=== PATIENT | female | born 1940 | race Caucasian/White ===

== ENCOUNTER → 2016-09-30 | Outpatient (CLI) | payer MEDICARE, BC ==
--- NOTE | 2016-09-30 10:51 | MM ---
Reason for exam: screening (asymptomatic). Last mammogram was performed 2 years and 4 months ago. History: Patient is postmenopausal. Physical Findings: A clinical breast exam by your physician is recommended on an annual basis and results should be correlated with mammographic findings. MG 3D Screening Mammo W/Cad Bilateral CC and MLO view(s) were taken. Prior study comparison: May 26, 2014, bilateral MG screening mammo w CAD. May 25, 2013, bilateral digital screening mammo w/CAD. April 28, 2012, bilateral digital screening mammo w/CAD. There are scattered fibroglandular densities. Finding: There are typically benign vascular calcifications in both breasts. There is no discrete abnormality. ASSESSMENT: Benign, BI-RAD 2 RECOMMENDATION: Routine screening mammogram of both breasts in 1 year.
== END | disposition home or self-care (01) ==
LOC: RADMAMWWP 08:08
PROVIDERS: ATTEND Family Medicine
DX: Z12.31 Encounter for screening mammogram for malignant neoplasm of breast (principal)
CPT/HCPCS: 77063; G0202

== ENCOUNTER 2016-11-09 17:45 | Observation (INO) | payer MEDICARE, BC ==
[2016-11-09] MEDS ORDERED: NITROGLYCERIN OINT 1 INCH/GM PACKET TOPICAL STA (18:28)
[2016-11-09] MEDS ORDERED: ASPIRIN 81 MG CHEW PO STA (18:28)
--- NOTE | 2016-11-09 18:28 | ED ---
General Adult HPI - General Chief complaint: Chest Pain Stated complaint: Chest pain Time Seen by Provider: 11/09/16 17:50 Source: patient, RN notes reviewed Mode of arrival: wheelchair Limitations: no limitations - History of Present Illness Initial comments: This is a 76-year-old female who presents to the emergency department complaining of chest pain intermittent. Patient states his been intermittent all month-long typically lasting 10 minutes however today she states his been much more severe and much longer. Patient states is no shortness of breath associated there is no diaphoresis. There is no nauseated. There is no vomiting or diarrhea. Patient states the chest pain does not seem to be worse with exertion. She denies any abdominal pain. Patient denies any headache patient denies numbness weakness. Patient denies any lightheadedness dizziness or near syncopal episode. Patient states she has not been sick recently. Patient denies any recent fever chills or cough. Patient denies any recent injury or trauma. - Related Data Home Medications Medication Instructions Recorded Confirmed B Infantis/B Ani/B Ryan/B Bifid 1 tab PO DAILY 01/13/14 11/09/16 [Probiotic 4X Caplet] Vit A,C & E/Lutein/Minerals 1 tab PO DAILY 01/13/14 11/09/16 [Ocuvite with Lutein Tablet] LORazepam [Ativan] 1 mg PO AC-LUNCH 11/09/16 11/09/16 LORazepam [Ativan] 2 mg PO HS 11/09/16 11/09/16 Metoprolol Tartrate [Lopressor] 25 mg PO DAILY 11/09/16 11/09/16 Ranitidine HCl 150 mg PO BID 11/09/16 11/09/16 Allergies Allergy/AdvReac Type Severity Reaction Status Date / Time adhesive Allergy Rash/Hives Verified 11/09/16 18:31 chlorhexidine gluconate Allergy Itching Verified 11/09/16 18:31 [From Hibiclens] ciprofloxacin [From Cipro] Allergy Rash/Hives Verified 11/09/16 18:31 ciprofloxacin HCl Allergy Rash/Hives Verified 11/09/16 18:31 [From Cipro] fentanyl [From Duragesic] Allergy Itching Verified 11/09/16 18:31 fluocinonide Allergy Rash/Hives Verified 11/09/16 18:31 isopropyl alcohol Allergy Itching Verified 11/09/16 18:31 [From Hibiclens] nitrofurantoin Allergy Unknown Verified 11/09/16 18:31 [From Macrobid] nitrofurantoin Allergy Unknown Verified 11/09/16 18:31 macrocrystalline [From Macrobid] Penicillins Allergy headache Verified 11/09/16 18:31 povidone-iodine Allergy Rash/Hives Verified 11/09/16 18:31 [From Betadine] soap [From Betadine] Allergy Rash/Hives Verified 11/09/16 18:31 streptomycin [Streptomycin] Allergy Unknown Verified 11/09/16 18:31 Sulfa (Sulfonamide Allergy Rash/Hives Verified 11/09/16 18:31 Antibiotics) aspirin AdvReac Nausea & Verified 11/09/16 18:31 Vomiting methylprednisolone AdvReac Nausea & Verified 11/09/16 18:31 [From Medrol] Vomiting NSAIDS (Non-Steroidal AdvReac Nausea & Verified 11/09/16 18:31 Anti-Inflamma Vomiting Review of Systems ROS Statement: Those systems with pertinent positive or pertinent negative responses have been documented in the HPI. ROS Other: All systems not noted in ROS Statement are negative. Past Medical History Past Medical History: Osteoarthritis (OA) Additional Past Medical History / Comment(s): IBS, hx of arrythmia History of Any Multi-Drug Resistant Organisms: None Reported Past Surgical History: Appendectomy, Back Surgery, Cholecystectomy, Ear Surgery , Hysterectomy, Orthopedic Surgery, Pacemaker Additional Past Surgical History / Comment(s): rotator cuff surg., laser eye surg. Past Anesthesia/Blood Transfusion Reactions: Motion Sickness, Postoperative Nausea & Vomiting (PONV) Type of Cardiac Device: Permanent Pacemaker Device Placement Date:: unknown Past Psychological History: Anxiety Smoking Status: Never smoker Past Alcohol Use History: Occasional Past Drug Use History: None Reported - Past Family History Father Family Medical History: Cancer Additional Family Medical History / Comment(s): lung General Exam - General Exam Comments Initial Comments: GENERAL: Patient is well-developed and well-nourished. Patient is nontoxic and well- hydrated and is in no acute distress. ENT: Neck is soft and supple. No significant lymphadenopathy is noted. Oropharynx is clear. Moist mucous membranes. Neck has full range of motion without eliciting any pain. EYES: The sclera were anicteric and conjunctiva were pink and moist. Extraocular movements were intact and pupils were equal round and reactive to light. Eyelids were unremarkable. PULMONARY: Unlabored respirations. Good breath sounds bilaterally. No audible rales rhonchi or wheezing was noted. CARDIOVASCULAR: There is a regular rate and rhythm without any murmurs gallops or rubs. Femoral pulses are equal bilaterally ABDOMEN: Soft and nontender with normal bowel sounds. No palpable organomegaly was noted. There is no palpable pulsatile mass. SKIN: Skin is clear with no lesions or rashes and otherwise unremarkable. NEUROLOGIC: Patient is alert and oriented x3. Cranial nerves II through XII are grossly intact. Motor and sensory are also intact. Normal speech, volume and content. Symmetrical smile. Cerebellar exam grossly intact. MUSCULOSKELETAL: Normal extremities with adequate strength and full range of motion. No lower extremity swelling or edema. No calf tenderness. LYMPHATICS: No significant lymphadenopathy is noted PSYCHIATRIC: Normal psychiatric evaluation. Normal interpersonal interactions appears functionally intact in deals appropriately with others. No signs of depression. No signs of anxiety. No delusions. No hallucinations. Limitations: no limitations Course Vital Signs 11/09/16 11/09/16 11/09/16 17:47 18:01 19:25 Temperature 97.8 F Pulse Rate 71 59 L 54 L Respiratory 20 18 16 Rate Blood Pressure 102/57 107/56 125/58 O2 Sat by Pulse 98 97 98 Oximetry Medical Decision Making - Medical Decision Making EKG shows sinus bradycardia 59 bpm PA interval 140 QRS is 80 QT interval 412 QTC is 407 per patient's EKG shows no ST segment elevation or depression or T- wave abdomen is noted. Chest x-ray shows no acute abnormality. I spoke with [facility] they agreed to accept the patient admitted the patient I wrote admitting orders and consult cardiology. - Lab Data Result diagrams: 11/09/16 18:43 11/09/16 18:43 Lab Results 11/09/16 11/09/16 11/09/16 Range/Units 18:43 18:43 18:43 WBC 6.4 (3.8-10.6) k/uL RBC 4.22 (3.80-5.40) m/uL Hgb 13.1 (11.4-16.0) gm/dL Hct 37.6 (34.0-46.0) % MCV 89.2 (80.0-100.0) fL MCH 31.2 (25.0-35.0) pg MCHC 35.0 (31.0-37.0) g/dL RDW 13.5 (11.5-15.5) % Plt Count 187 (150-450) k/uL Neutrophils % 65 % Lymphocytes % 23 % Monocytes % 5 % Eosinophils % 4 % Basophils % 1 % Neutrophils # 4.2 (1.3-7.7) k/uL Lymphocytes # 1.5 (1.0-4.8) k/uL Monocytes # 0.3 (0-1.0) k/uL Eosinophils # 0.2 (0-0.7) k/uL Basophils # 0.0 (0-0.2) k/uL PT (9.0-12.0) sec INR (<1.1) APTT (22.0-30.0) sec Sodium 140 (137-145) mmol/L Potassium 4.3 (3.5-5.1) mmol/L Chloride 105 (98-107) mmol/L Carbon Dioxide 28 (22-30) mmol/L Anion Gap 7 mmol/L BUN 17 (7-17) mg/dL Creatinine 0.70 (0.52-1.04) mg/dL Est GFR (MDRD) Af Amer >60 (>60 ml/min/1.73 sqM) Est GFR (MDRD) Non-Af >60 (>60 ml/min/1.73 sqM) Glucose 91 (74-99) mg/dL Calcium 8.9 (8.4-10.2) mg/dL Magnesium 1.8 (1.6-2.3) mg/dL Total Bilirubin 0.4 (0.2-1.3) mg/dL AST 22 (14-36) U/L ALT 27 (9-52) U/L Alkaline Phosphatase 78 (38-126) U/L Total Creatine Kinase 32 (30-135) U/L CK-MB (CK-2) 0.8 (0.0-2.4) ng/mL CK-MB (CK-2) Rel Index 2.5 Troponin I <0.012 (0.000-0.034) ng/mL Total Protein 6.4 (6.3-8.2) g/dL Albumin 3.7 (3.5-5.0) g/dL 03/26/17 Range/Units 18:43 WBC (3.8-10.6) k/uL RBC (3.80-5.40) m/uL Hgb (11.4-16.0) gm/dL Hct (34.0-46.0) % MCV (80.0-100.0) fL MCH (25.0-35.0) pg MCHC (31.0-37.0) g/dL RDW (11.5-15.5) % Plt Count (150-450) k/uL Neutrophils % % Lymphocytes % % Monocytes % % Eosinophils % % Basophils % % Neutrophils # (1.3-7.7) k/uL Lymphocytes # (1.0-4.8) k/uL Monocytes # (0-1.0) k/uL Eosinophils # (0-0.7) k/uL Basophils # (0-0.2) k/uL PT 10.9 (9.0-12.0) sec INR 1.1 (<1.1) APTT 24.3 (22.0-30.0) sec Sodium (137-145) mmol/L Potassium (3.5-5.1) mmol/L Chloride (98-107) mmol/L Carbon Dioxide (22-30) mmol/L Anion Gap mmol/L BUN (7-17) mg/dL Creatinine (0.52-1.04) mg/dL Est GFR (MDRD) Af Amer (>60 ml/min/1.73 sqM) Est GFR (MDRD) Non-Af (>60 ml/min/1.73 sqM) Glucose (74-99) mg/dL Calcium (8.4-10.2) mg/dL Magnesium (1.6-2.3) mg/dL Total Bilirubin (0.2-1.3) mg/dL AST (14-36) U/L ALT (9-52) U/L Alkaline Phosphatase (38-126) U/L Total Creatine Kinase (30-135) U/L CK-MB (CK-2) (0.0-2.4) ng/mL CK-MB (CK-2) Rel Index Troponin I (0.000-0.034) ng/mL Total Protein (6.3-8.2) g/dL Albumin (3.5-5.0) g/dL Disposition Clinical Impression: Unstable angina pectoris Disposition: ADMITTED IP TO THIS HOSP Referrals: Emma Mcgregor DO [Primary Care Provider] - 1-2 days Time of Disposition: 19:46
[2016-11-09 18:54] LABS: Basophils % (A) 1 %; CH 31.2; CHCM 35.2; Eosinophils # (A) 0.2 k/uL (0-0.7); Eosinophils % (A) 4 %; HCT 37.6 % (34.0-46.0); HDW 2.75; HGB 13.1 gm/dL (11.4-16.0); Luc # (Auto) 0.16; Luc % (Auto) 3; Lymphocytes # (A) 1.5 k/uL (1.0-4.8); Lymphocytes % (A) 23 %; MCH 31.2 pg (25.0-35.0); MCV 89.2 fL (80.0-100.0); Mean Platelet Volume 7.5; Monocytes # (A) 0.3 k/uL (0-1.0); Monocytes % (A) 5 %; Neutrophils # (A) 4.2 k/uL (1.3-7.7); Neutrophils % (A) 65 %; RBC 4.22 m/uL (3.80-5.40); RDW 13.5 % (11.5-15.5); WBC 6.4 k/uL (3.8-10.6); WBC (Perox) 6.72
[2016-11-09 18:58] LABS: INR 1.1 (<1.1); Prothrombin Time 10.9 sec (9.0-12.0)
--- NOTE | 2016-11-09 18:58 | XR ---
EXAMINATION TYPE: XR chest 2V DATE OF EXAM: 11/09/2016 6:45 PM COMPARISON: 01/19/2014 HISTORY: Chest pain TECHNIQUE: Frontal and lateral views of the chest are obtained. FINDINGS: There is no heart failure nor confluent pneumonic infiltrate. Heart size is normal. There are no hilar masses. There is left axillary pacemaker with the lead tips in the right ventricle. Thor acic aorta is atheromatous. There is no pleural effusion. IMPRESSION: No active cardiopulmonary disease. No change.
[2016-11-09 18:59] LABS: ALT 27 U/L (9-52); AST 22 U/L (14-36); Alkaline Phosphatase 78 U/L (38-126); Anion Gap 7 mmol/L; Blood Urea Nitrogen 17 mg/dL (7-17); Calcium 8.9 mg/dL (8.4-10.2); Carbon Dioxide 28 mmol/L (22-30); Chloride 105 mmol/L (98-107); Glucose 91 mg/dL (74-99); Magnesium 1.8 mg/dL (1.6-2.3); Non-African American GFR(MDRD) >60 (>60 ml/min/1.73 sqM); Partial Thromboplastin Time 24.3 sec (22.0-30.0); Potassium 4.3 mmol/L (3.5-5.1); Sodium 140 mmol/L (137-145); Total Bilirubin 0.4 mg/dL (0.2-1.3); Total Protein 6.4 g/dL (6.3-8.2)
[2016-11-09 19:20] LABS: Creatine Kinase 32 U/L (30-135)
[2016-11-09 19:33] LABS: Creatine Kinase MB 0.8 ng/mL (0.0-2.4); Troponin I <0.012 ng/mL (0.000-0.034)
[2016-11-09 19:38] VITALS: RESP 16
[2016-11-09] MEDS ORDERED: NITROGLYCERIN SL TABS 0.4 MG TAB SUBLINGUAL PRN (19:47)
[2016-11-09 21:59] VITALS: BMI 29.7
[2016-11-09] MEDS ORDERED: LORazepam 1 MG TAB PO PRN (22:36)
[2016-11-09] MEDS: ACETAMINOPHEN TAB 325 MG TAB PO PRN (23:56)
[2016-11-10 00:39] LABS: Creatine Kinase 25 U/L (30-135)
[2016-11-10 00:48] LABS: Creatine Kinase MB 0.5 ng/mL (0.0-2.4); Troponin I <0.012 ng/mL (0.000-0.034)
[2016-11-10] MEDS: DICYCLOMINE 10 MG CAP PO SCH ×2 (03:06→14:35)
[2016-11-10] MEDS: ACETAMINOPHEN TAB 325 MG TAB PO PRN (06:08)
[2016-11-10 08:07] LABS: Cholesterol 177 mg/dL (<200); HDL Cholesterol 57 mg/dL (40-60); Triglycerides 60 mg/dL (<150)
[2016-11-10 08:11] LABS: Creatine Kinase 25 U/L (30-135)
[2016-11-10 08:23] LABS: Creatine Kinase MB 0.6 ng/mL (0.0-2.4); Troponin I <0.012 ng/mL (0.000-0.034)
[2016-11-10] MEDS ORDERED: FAMOTIDINE 20 MG TAB PO SCH (09:00)
[2016-11-10] MEDS ORDERED: METOPROLOL TARTRATE 25 MG TAB PO SCH (09:00)
[2016-11-10] MEDS ORDERED: ASPIRIN 325 MG TAB PO SCH (09:00)
[2016-11-10] MEDS ORDERED: VIT A,C & E-LUTEIN-MINERALS 1 EACH TAB PO SCH (09:00)
[2016-11-10] MEDS ORDERED: DIPHENOX-ATROP 2.5-0.025 MG 1 EACH TAB PO PRN (09:47)
[2016-11-10] MEDS ORDERED: MORPHINE SULFATE 2 MG/ML SYRINGE IVP STA (11:10)
[2016-11-10] MEDS ORDERED: AMINOPHYLLINE 500 MG/20 ML VIAL IV PRN (11:12)
[2016-11-10] MEDS ORDERED: REGADENOSON 0.4 MG/5 ML SYRINGE IV ONE (11:15)
--- NOTE | 2016-11-10 14:56 | NM ---
EXAMINATION TYPE: NM stress Lexiscan cardiolite DATE OF EXAM: 11/10/2016 2:18 PM COMPARISON: NONE HISTORY: Chest pain TECHNIQUE: After the intravenous administration of 11.0 mCi Tc 99m Sestamibi - Cardiolite resting SP ECT images acquired 45 minutes post injection. The patient received 0.4mg Lexiscan, 27.5 mCi Tc 99m Sestamibi - Stress images obtained [address] injection FINDINGS: The rest images show diffusely increased activity compared to the stress images. Gated analysis shows normal wall motion with an estimated left ventricular ejection fraction of 53 %. IMPRESSION: INFORMATION DENSITY PROBLEM VERSUS GLOBAL ISCHEMIA.
--- NOTE | 2016-11-10 15:23 | ECHOS ---
DATE OF SERVICE: AGE: 76Y SEX: F HT: 59" WT: 147 lbs. Protocol Zeb: Others: Stage: Dur. of Exercise: *Heart Rate Blood Pressure *Rest: 59 Rest: 131/78 * *Max. Achieved: 86 Maximum BP: 210/62 85% PMHR: 122 100% PMHR: 144 *METS: INDICATIONS: Chest pain. MEDICATIONS: See list. Baseline rhythm is a sinus mechanism, rate of 59, normal axis and intervals. Minor nonspecific ST-T wave changes. Baseline blood pressure 131/78 mmHg. Patient received an injection of Lexiscan. Electrocardiograph monitoring revealed no evidence of diagnostic ischemic ST deviation. Cardiolite was injected per protocol. CONCLUSION: 1. Nondiagnostic electrocardiograph stress test. 2. Nuclear images will be reported separately.
--- NOTE | 2016-11-10 16:06 | CONS ---
DATE OF CONSULTATION: 76-year-old female Admitted by Dr. Richard. Consultation requested by Dr. Richard. Patient follows with my associate Dr. Kathy Meadows. Patient has a pacemaker, which is reaching end of life. Pacemaker was checked in August and comes back in December for generator replacement. Patient admitted to the hospital with recurrent intermittent chest pain with radiation to the back, lasting for 10 minutes on and off. Minimal exertion without any diaphoresis or shortness of breath. No nausea. Patient is reasonably active. Lives alone by herself. Patient has 3 children but does not have much contact with her children. Patient known to have hypertension and sick sinus syndrome status post pacemaker implantation. Current medications include: 1. Lorazapam. 2. Ativan on p.r.n. basis. 3. Metoprolol tartrate 25 mg p.o. daily. 4. Ranitidine 50 mg p.o. b.i.d. Patient allergic to a whole lot of medications which include: ADHESIVE TAPE, HIBACLENS, CIPRO, FENTANYL, ISOPROPYL ALCOHOL, ( ), NITROFURANTOIN, PENICILLIN, IODINE, BETADINE SOAK, STREPTOMYCIN, SULFA, ASPIRIN, METHYL PREDNISONE AND NONSTEROIDAL ANTI-INFLAMMATORY AGENTS. Patient is ( ) nonsmoker. Review of systems are essentially unremarkable, complaining of headache which she never has, but has a headache today. Patient had multiple surgeries in the past, which include appendectomy, back surgery, cholecystectomy, ( ) surgery, hysterectomy, orthopedic surgery and pacemaker. Physical examination revealed a 76-year-old female appeared to be in moderate distress because of the headache with stable vital signs with a pulse rate of 68 beats per minute and regular, blood pressure 116/62, respirations 16. Head normocephalic. HEENT unremarkable. Neck is supple. No thyroid enlargement. No bruit noted. Good carotid upstroke bilaterally. Chest is symmetrical. CARDIAC EXAMINATION: S1 and S2. Lungs are clinically clear to auscultation and percussion. ABDOMEN: Soft, no organomegaly. Active bowel sounds. EXTREMITIES: Decreased pedal pulses. No pedal edema. [employer] JUDGE examination: Grossly within normal limits. ASSESSMENT: 1. Recurrent chest pain suggestive of atypical angina without any enzyme leaks. 2. Cephalgia. 3. Hypertension and sick sinus syndrome, status post pacemaker implantation. Battery is reaching end of life, to rescreened in December. RECOMMENDATIONS: Will proceed with a Lexiscan Cardiolite study to assess severity of coronary artery disease and need for interventions. If the study is normal, patient may be able to go home.
[2016-11-10 16:34] VITALS: TEMP 98.6
[2016-11-10 16:36] VITALS: BP 118/85; PULSE 55
[2016-11-11] MEDS ORDERED: FAMOTIDINE 20 MG TAB PO SCH (09:00)
--- NOTE | 2016-11-11 10:38 | HP ---
DATE OF ADMISSION: CHIEF COMPLAINT: Chest pain. HISTORY OF ILLNESS: Ms. Martin is a 76-year-old female with known history of anxiety and history of sick sinus syndrome and pacemaker placement about 10 years back. Came to the hospital with complaints of ( ) and the left-sided chest pain, started yesterday and has been present all day, intermittent, lasting about 10 minutes. Denied any short of breath. No nausea or vomiting. No diaphoresis, no headache or dizziness or lightheadedness. Patient went to the hospital for further evaluation. Patient, otherwise, denied any recent illnesses. No sick contacts at home. REVIEW OF SYSTEMS: CONSTITUTIONAL: No fever. No chills. RESPIRATORY: No cough or sputum production. CARDIOVASCULAR: No chest pain or short of breath. ABDOMEN: No nausea, vomiting or abdominal pain. GENITOURINARY: Negative. ENDOCRINE: Negative. PSYCHIATRY: Negative. SKIN: Negative. MUSCULOSKELETAL: Negative. All other 14-point review of systems negative except as above. Past medical history includes history of sick sinus syndrome, status post pacemaker replacement, anxiety and hypertension, IBS and history of ( ) osteoarthritis. PAST SURGICAL HISTORY: Appendectomy, back surgery, cholecystectomy, ear surgery, hysterectomy, orthopedic surgery and permanent pacemaker replacement, rotator cuff surgery, pacemaker, laser eye surgery. SOCIAL HISTORY: Patient never a smoker, occasional alcohol use. No IVDU. FAMILY HISTORY: Father has lung cancer. Home medications include: 1. Probiotics. 2. Ocuvite with lutein tablet. 3. Lorazepam. 4. Metoprolol. 5. Loratadine. 6. ( ). 7. Chlorhexidine. 8. Ciprofloxacin. 9. Fentanyl. 10. ( ). 11. Isopropyl alcohol. 12. Nitrofurantoin. 13. Insulin. 14. ( ). 15. Streptomycin. 16. Sulfa. 17. Aspirin. 18. Medrol prednisone. 19. NSAID. PHYSICAL EXAMINATION: A 76-year-old female lying in bed, comfortably, awake, alert, oriented x3. Appears to be in no apparent distress. VITALS: Blood pressure is 102/57, pulse is 71, respirations 20, temperature afebrile, pulse ox 98% on 2 L nasal cannula. HEENT: Atraumatic, normocephalic. Neck is supple. No JVD. CVS EXAM: S1, S2, muffled, no murmurs, no gallop, no rub. LUNGS: Bilateral air entry is present. No wheezing. No crackles. Nonlabored breathing. Abdomen is soft, nontender. Bowel sounds are present. MEAT HANGER: Awake, alert, oriented x3. No focal deficits. EXTREMITIES: No edema, pulses palpable bilaterally. PSYCHIATRIC: Cooperative. Patient does have left anterior chest pain with pacemaker in place. No tenderness at the site, no redness at the site. LABORATORY DATA: WBC 6.4, hemoglobin 13.1, platelets are 187, INR 1.1. Sodium 140, potassium 4.3, chloride 105, bicarb is 28, BUN 17, creatinine 0.7, magnesium 1.8. Troponin x3 negative. The LDL is 108. EKG, sinus bradycardia. Chest x-ray, no acute cardiopulmonary process. Stress test showed information density problem versus global ischemia and nondiagnostic echocardiographic stress test. ( ) separately. IMPRESSION: 1. Atypical chest pain, rule out acute coronary artery syndrome. 2. Sick sinus syndrome with a pacemaker placement. 3. Hypertension. 4. Anxiety. RECOMMENDATION: Patient will be continued on ( ). Cardiology ( ) stress test. Will continue to follow closely. Further recommendations based on the clinical course. Patient is currently chest-pain free.
--- NOTE | 2016-11-11 20:37 | DS ---
DATE OF ADMISSION: 11/09/2016 DATE OF DISCHARGE: 11/10/2016 DISCHARGE DIAGNOSES: 1. Atypical chest pain, ruled out acute coronary syndrome, nondiagnostic echocardiographic stress test. 2. Hypertension. 3. Anxiety. 4. History of sick sinus syndrome and pacemaker placement. HOSPITAL COURSE: Ms. Martin is a 76 -year-old female with left sided chest pain, intermittent lasting about 10 minutes, not associated with nausea, vomiting, diaphoresis, no headache or dizziness, lightheadedness. The patient was monitored in the hospital with serial EKGs and troponins negative. The patient underwent ( ) stress test showed nondiagnostic echocardiograph stress test and ( ) Lexiscan stress test stress. The patient serial EKGs and troponins negative. The patient is chest pain free now. Patient advised to follow with cardiology team for pacemaker battery replacement as well. The patient wants to go home and will be discharged in stable condition. Discharge physical examination: 76 -year-old female, lying in the bed comfortably, awake, alert and oriented x3 appears to be in no apparent distress. VITAL SIGNS: Blood pressure is 111/48. Pulse is 85. Respiratory rate 16. Temperature afebrile. Pulse ox 98% on room air. Laboratory data reviewed. Discharge physical examination done. Discharge medications include: 1. Probiotic 1 tablet p.o. daily. 2. Ocuvite 1 tablet p.o. daily. 3. Bentyl 10 milligrams p.o. b.i.d. 4. Lomotil 1 tablet p.o. q.i.d. p.r.n. for diarrhea. 5. Ativan 1 mg a.c. lunch. 6. Ativan 2 mg p.o. at bedtime. 7. Metoprolol tartrate 25 mg p.o. daily. 8. Ranitidine 450 mg p.o. b.i.d. Patient will be discharged home and with self-care. Activity as tolerated. Follow with Dr. Mcgregor in one or two days. Follow with Dr. Kathy Meadows in one week.
== END 2016-11-10 19:30 | disposition home or self-care (01) ==
LOC: EC 17:45 → 3OBS 19:46
PROVIDERS: ADMIT Hospitalist; ATTEND Hospitalist
DX: R07.89 Other chest pain (principal); R51 Headache; I10 Essential (primary) hypertension; Z95.0 Presence of cardiac pacemaker; Z79.899 Other long term (current) drug therapy; M19.90 Unspecified osteoarthritis, unspecified site; K58.9 Irritable bowel syndrome, unspecified; F41.9 Anxiety disorder, unspecified; Z80.1 Family history of malignant neoplasm of trachea, bronchus and lung; Z88.6 Allergy status to analgesic agent; Z88.1 Allergy status to other antibiotic agents; Z88.5 Allergy status to narcotic agent; Z88.0 Allergy status to penicillin; Z88.2 Allergy status to sulfonamides; Z88.8 Allergy status to other drugs, medicaments and biological substances; Z91.048 Other nonmedicinal substance allergy status
CPT/HCPCS: 99285; 36415; 93005; 93017; 80061; 80053; 82550 ×2; 82553 ×2; 83735; 84484 ×2; 85025; 85610; 85730; 71020; 78452; G0378 ×2; A9500; J2270; J2785

== ENCOUNTER 2016-11-30 08:14 | Emergency (ER) | payer MEDICARE, BC ==
[2016-11-30] MEDS ORDERED: MORPHINE SULFATE 2 MG/ML SYRINGE IVP STA (08:30)
[2016-11-30] MEDS ORDERED: ONDANSETRON 4 MG/2 ML VIAL IVP STA (08:30)
[2016-11-30] MEDS ORDERED: RX INFO: IV CONTRAST WAS GIVEN 1 EACH MISC MISCELLANE PRN (08:30)
[2016-11-30] MEDS ORDERED: SODIUM CHLORIDE 0.9% 1,000 ML IV STA (08:30)
--- NOTE | 2016-11-30 08:33 | ED ---
Abdominal Pain HPI - General Source: patient, RN notes reviewed Mode of arrival: wheelchair Limitations: no limitations <Gilmar Hughes - Last Filed: 11/30/16 10:35> <Basil Michelle - Last Filed: 11/30/16 10:41> - General Chief Complaint: Abdominal Pain Stated Complaint: LEFT SIDE ABDOMINAL PAIN Time Seen by Provider: 11/30/16 08:26 - History of Present Illness Initial Comments: 76 she'll female presents emergency Department chief complaint of left upper quadrant abdominal pain. Patient states been having on and off pain over the last 2-3 days or states worse today. Patient states that she usually has some pain because she states she has severe IBS. Patient states she has to take Lomotil every day. Patient states that she has chronic diarrhea. Patient states she's had a prior appendectomy, cholecystectomy. Patient has no history of diverticulitis. Patient denies fever, chills, chest pain, shortness of breath. Patient denies any dysuria hematuria. Denies any flank pain. Patient states nothing seems to make the pain feel better or worse. She states it sharp in nature and 10/10 pain. (Gilmar Hughes) - Related Data Home Medications Medication Instructions Recorded Confirmed B Infantis/B Ani/B Ryan/B Bifid 1 tab PO DAILY 01/13/14 11/30/16 [Probiotic 4X Caplet] Vit A,C & E/Lutein/Minerals 1 tab PO DAILY 01/13/14 11/30/16 [Ocuvite with Lutein Tablet] Dicyclomine [Bentyl] 10 mg PO BID 11/09/16 11/30/16 Diphenox-Atrop 2.5-0.025 mg 1 tab PO QID PRN 11/09/16 11/30/16 [Lomotil] LORazepam [Ativan] 1 mg PO AC-LUNCH 11/09/16 11/30/16 LORazepam [Ativan] 2 mg PO HS 11/09/16 11/30/16 Metoprolol Tartrate [Lopressor] 25 mg PO DAILY 11/09/16 11/30/16 Previous Rx's Medication Instructions Recorded Omeprazole [PriLOSEC] 20 mg PO AC-BRKFST #14 cap 11/30/16 Allergies Allergy/AdvReac Type Severity Reaction Status Date / Time adhesive Allergy Rash/Hives Verified 11/30/16 09:25 chlorhexidine gluconate Allergy Itching Verified 11/30/16 09:25 [From Hibiclens] ciprofloxacin [From Cipro] Allergy Rash/Hives Verified 11/30/16 09:25 ciprofloxacin HCl Allergy Rash/Hives Verified 11/30/16 09:25 [From Cipro] fentanyl [From Duragesic] Allergy Itching Verified 11/30/16 09:25 fluocinonide Allergy Rash/Hives Verified 11/30/16 09:25 isopropyl alcohol Allergy Itching Verified 11/30/16 09:25 [From Hibiclens] nitrofurantoin Allergy Unknown Verified 11/30/16 09:25 [From Macrobid] nitrofurantoin Allergy Unknown Verified 11/30/16 09:25 macrocrystalline [From Macrobid] Penicillins Allergy headache Verified 11/30/16 09:25 povidone-iodine Allergy Rash/Hives Verified 11/30/16 09:25 [From Betadine] soap [From Betadine] Allergy Rash/Hives Verified 11/30/16 09:25 streptomycin [Streptomycin] Allergy Unknown Verified 11/30/16 09:25 Sulfa (Sulfonamide Allergy Rash/Hives Verified 11/30/16 09:25 Antibiotics) aspirin AdvReac Nausea & Verified 11/30/16 09:25 Vomiting methylprednisolone AdvReac Nausea & Verified 11/30/16 09:25 [From Medrol] Vomiting NSAIDS (Non-Steroidal AdvReac Nausea & Verified 11/30/16 09:25 Anti-Inflamma Vomiting Review of Systems ROS Other: All systems not noted in ROS Statement are negative. <Gilmar Hughes - Last Filed: 11/30/16 10:35> ROS Other: All systems not noted in ROS Statement are negative. <Basil Michelle - Last Filed: 11/30/16 10:41> ROS Statement: Those systems with pertinent positive or pertinent negative responses have been documented in the HPI. Past Medical History Past Medical History: Osteoarthritis (OA) Additional Past Medical History / Comment(s): IBS, hx of arrythmia History of Any Multi-Drug Resistant Organisms: None Reported Past Surgical History: Appendectomy, Back Surgery, Cholecystectomy, Ear Surgery , Hysterectomy, Orthopedic Surgery, Pacemaker Additional Past Surgical History / Comment(s): rotator cuff surg., laser eye surg. Past Anesthesia/Blood Transfusion Reactions: Motion Sickness, Postoperative Nausea & Vomiting (PONV) Type of Cardiac Device: Permanent Pacemaker Device Placement Date:: unknown Past Psychological History: Anxiety Smoking Status: Never smoker Past Alcohol Use History: Occasional Past Drug Use History: None Reported - Past Family History Father Family Medical History: Cancer Additional Family Medical History / Comment(s): lung <Gilmar Hughes - Last Filed: 11/30/16 10:35> General Exam Limitations: no limitations General appearance: alert, in no apparent distress Respiratory exam: Present: normal lung sounds bilaterally. Absent: respiratory distress, wheezes, rales, rhonchi, stridor Cardiovascular Exam: Present: regular rate, normal rhythm, normal heart sounds. Absent: systolic murmur, diastolic murmur, rubs, gallop, clicks GI/Abdominal exam: Present: soft, tenderness (Moderate left upper quadrant tenderness), normal bowel sounds. Absent: distended, guarding, rebound, rigid Back exam: Absent: CVA tenderness (R), CVA tenderness (L) Skin exam: Present: warm, dry, intact, normal color. Absent: rash <Gilmar Hughes - Last Filed: 11/30/16 10:35> Course <Gilmar Hughes - Last Filed: 11/30/16 10:35> <Basil Michelle - Last Filed: 11/30/16 10:41> Vital Signs 11/30/16 11/30/16 08:20 09:58 Temperature 97.6 F 97.6 F Pulse Rate 69 80 Respiratory 18 13 Rate Blood Pressure 129/60 118/56 O2 Sat by Pulse 97 93 L Oximetry - Reevaluation(s) Reevaluation #1: 11/30/16 10:40 I did personally do a [id number] examination the patient did discuss the findings with her. I also did review the patient's workup in the emergency. The workup is negative patient currently is asymptomatic abdomen soft nontender the presentation is consistent with irritable bowel syndrome. She has had this before and is very familiar with it. She is follow-up with her doctor and return when necessary (Basil Michelle) Medical Decision Making - Lab Data Result diagrams: 11/30/16 08:20 11/30/16 08:20 <Gilmar Hughes - Last Filed: 11/30/16 10:35> - Lab Data Result diagrams: 11/30/16 08:20 11/30/16 08:20 <Basil Michelle - Last Filed: 11/30/16 10:41> - Medical Decision Making 76-year-old female presented for left upper quadrant abdominal pain. Patient's lab work, CT within normal limits. Patient does have a history of IBS. Patient 's EKG shows no acute changes. Patient states over pain has resolved at this time. Patient will follow-up with her primary care physician, GI. Return parameters were discussed. (Gilmar Hughes) - Lab Data Lab Results 11/30/16 11/30/16 11/30/16 Range/Units 08:20 08:20 08:20 WBC 4.6 (3.8-10.6) k/uL RBC 4.25 (3.80-5.40) m/uL Hgb 13.2 (11.4-16.0) gm/dL Hct 38.0 (34.0-46.0) % MCV 89.5 (80.0-100.0) fL MCH 31.2 (25.0-35.0) pg MCHC 34.8 (31.0-37.0) g/dL RDW 13.8 (11.5-15.5) % Plt Count 192 (150-450) k/uL Neutrophils % 56 % Lymphocytes % 28 % Monocytes % 6 % Eosinophils % 7 % Basophils % 0 % Neutrophils # 2.6 (1.3-7.7) k/uL Lymphocytes # 1.3 (1.0-4.8) k/uL Monocytes # 0.3 (0-1.0) k/uL Eosinophils # 0.3 (0-0.7) k/uL Basophils # 0.0 (0-0.2) k/uL Sodium 142 (137-145) mmol/L Potassium 4.6 (3.5-5.1) mmol/L Chloride 106 (98-107) mmol/L Carbon Dioxide 26 (22-30) mmol/L Anion Gap 10 mmol/L BUN 14 (7-17) mg/dL Creatinine 0.62 (0.52-1.04) mg/dL Est GFR (MDRD) Af Amer >60 (>60 ml/min/1.73 sqM) Est GFR (MDRD) Non-Af >60 (>60 ml/min/1.73 sqM) Glucose 82 (74-99) mg/dL Calcium 8.9 (8.4-10.2) mg/dL Total Bilirubin 0.9 (0.2-1.3) mg/dL AST 35 (14-36) U/L ALT 31 (9-52) U/L Alkaline Phosphatase 79 (38-126) U/L Troponin I <0.012 (0.000-0.034) ng/mL Total Protein 6.9 (6.3-8.2) g/dL Albumin 3.8 (3.5-5.0) g/dL Amylase 52 (30-110) U/L Lipase 42 (23-300) U/L Urine Color Urine Appearance (Clear) Urine pH (5.0-8.0) Ur Specific [place] (1.001-1.035) Urine Protein (Negative) Urine Glucose (UA) (Negative) Urine Ketones (Negative) Urine Blood (Negative) Urine Nitrite (Negative) Urine Bilirubin (Negative) Urine Urobilinogen (<2.0) mg/dL Ur Leukocyte Esterase (Negative) 11/30/16 Range/Units 10:29 WBC (3.8-10.6) k/uL RBC (3.80-5.40) m/uL Hgb (11.4-16.0) gm/dL Hct (34.0-46.0) % MCV (80.0-100.0) fL MCH (25.0-35.0) pg MCHC (31.0-37.0) g/dL RDW (11.5-15.5) % Plt Count (150-450) k/uL Neutrophils % % Lymphocytes % % Monocytes % % Eosinophils % % Basophils % % Neutrophils # (1.3-7.7) k/uL Lymphocytes # (1.0-4.8) k/uL Monocytes # (0-1.0) k/uL Eosinophils # (0-0.7) k/uL Basophils # (0-0.2) k/uL Sodium (137-145) mmol/L Potassium (3.5-5.1) mmol/L Chloride (98-107) mmol/L Carbon Dioxide (22-30) mmol/L Anion Gap mmol/L BUN (7-17) mg/dL Creatinine (0.52-1.04) mg/dL Est GFR (MDRD) Af Amer (>60 ml/min/1.73 sqM) Est GFR (MDRD) Non-Af (>60 ml/min/1.73 sqM) Glucose (74-99) mg/dL Calcium (8.4-10.2) mg/dL Total Bilirubin (0.2-1.3) mg/dL AST (14-36) U/L ALT (9-52) U/L Alkaline Phosphatase (38-126) U/L Troponin I (0.000-0.034) ng/mL Total Protein (6.3-8.2) g/dL Albumin (3.5-5.0) g/dL Amylase (30-110) U/L Lipase (23-300) U/L Urine Color Light Yellow Urine Appearance Clear (Clear) Urine pH 5.5 (5.0-8.0) Ur Specific [place] 1.042 H (1.001-1.035) Urine Protein Negative (Negative) Urine Glucose (UA) Negative (Negative) Urine Ketones Negative (Negative) Urine Blood Negative (Negative) Urine Nitrite Negative (Negative) Urine Bilirubin Negative (Negative) Urine Urobilinogen <2.0 (<2.0) mg/dL Ur Leukocyte Esterase Negative (Negative) Disposition Time of Disposition: 10:37 <Gilmar Hughes - Last Filed: 11/30/16 10:35> <Basil Michelle - Last Filed: 11/30/16 10:41> Clinical Impression: Abdominal pain, IBS (irritable bowel syndrome), Gastritis Disposition: HOME SELF-CARE Condition: Stable Instructions: Abdominal Pain (ED) Additional Instructions: Please return to the Emergency Department if symptoms worsen or any other concerns. Prescriptions: Omeprazole [PriLOSEC] 20 mg PO AC-BRKFST #14 cap Referrals: Emma Mcgregor DO [Primary Care Provider] - 1-2 days
[2016-11-30 09:03] LABS: Basophils % (A) 0 %; CH 31.5; CHCM 35.3; Eosinophils # (A) 0.3 k/uL (0-0.7); Eosinophils % (A) 7 %; HDW 2.91; HGB 13.2 gm/dL (11.4-16.0); Luc # (Auto) 0.14; Luc % (Auto) 3; Lymphocytes # (A) 1.3 k/uL (1.0-4.8); Lymphocytes % (A) 28 %; MCH 31.2 pg (25.0-35.0); MCHC 34.8 g/dL (31.0-37.0); MCV 89.5 fL (80.0-100.0); Monocytes # (A) 0.3 k/uL (0-1.0); Monocytes % (A) 6 %; Neutrophils # (A) 2.6 k/uL (1.3-7.7); Neutrophils % (A) 56 %; RBC 4.25 m/uL (3.80-5.40); RDW 13.8 % (11.5-15.5); WBC 4.6 k/uL (3.8-10.6); WBC (Perox) 4.89
[2016-11-30 09:13] LABS: Amylase 52 U/L (30-110); Anion Gap 10 mmol/L; Calcium 8.9 mg/dL (8.4-10.2); Carbon Dioxide 26 mmol/L (22-30); Chloride 106 mmol/L (98-107); Glucose 82 mg/dL (74-99); Non-African American GFR(MDRD) >60 (>60 ml/min/1.73 sqM); Sodium 142 mmol/L (137-145); Total Bilirubin 0.9 mg/dL (0.2-1.3); Total Protein 6.9 g/dL (6.3-8.2)
[2016-11-30 09:15] LABS: ALT 31 U/L (9-52); AST 35 U/L (14-36); Alkaline Phosphatase 79 U/L (38-126); Blood Urea Nitrogen 14 mg/dL (7-17); Potassium 4.6 mmol/L (3.5-5.1)
[2016-11-30] MEDS: diphenhydrAMINE 50 MG/ML 1 ML VIAL IVP STA ×2 (09:47→09:50)
[2016-11-30] MEDS: FAMOTIDINE 20 MG/2 ML VIAL IV STA ×2 (09:47→09:50)
--- NOTE | 2016-11-30 10:17 | CT ---
EXAMINATION TYPE: CT abdomen pelvis w con DATE OF EXAM: 11/30/2016 9:58 AM COMPARISON: NONE HISTORY: Lt sided pain, LUQ pain CT DLP: 722.4 mGycm Automated exposure control for dose reduction was used. TECHNIQUE: Helical acquisition of images was performed from the lung bases through the pelvis. CONTRAST: Performed without Oral Contrast and with IV Contrast, patient injected with 100 mL of Omnipaque 300. FINDINGS: LUNG BASES: Minimal basilar atelectatic change. Pacemaker leads are present. Coronary artery calcific ation is present, suspect mitral annular calcification. LIVER/GB: Mild prominence of intrahepatic biliary ducts. Patient is post cholecystectomy. PANCREAS: No significant abnormality is seen. SPLEEN: No significant abnormality is seen. ADRENALS: No significant abnormality is seen. KIDNEYS: Parapelvic cysts are present. RETROPERITONEAL ADENOPATHY: None visualized REPRODUCTIVE ORGANS: Patient is post hysterectomy, ovarian tissue thought to be present. URINARY BLADDER: No significant abnormality is seen. PELVIC ADENOPATHY: None visualized. OSSEOUS STRUCTURES: Postop changes are noted to the lumbar sacral spine. There is a spinal curvature . Extensive degenerative disc changes are present. BOWEL: No significant abnormality is seen. OTHER: Aorta shows normal caliber. IMPRESSION: POSTOP CHANGES. Additional findings above.
[2016-11-30 10:39] LABS: Appearance,Urine Clear (Clear); Bilirubin,Urine Negative (Negative); Glucose,Urine (UA) Negative (Negative); Ketones,Urine Negative (Negative); Leukocyte Esterase,Urine Negative (Negative); Nitrite,Urine Negative (Negative); PH, Urine 5.5 (5.0-8.0); Protein,Urine Negative (Negative); Specific Gravity,Urine 1.042 (1.001-1.035); UA Billing (MACRO vs. MICRO) CHEM; Urobilinogen,Urine <2.0 mg/dL (<2.0)
[2016-11-30 11:07] VITALS: BP 116/57; PULSE 84; RESP 18; TEMP 97.9
== END 2016-11-30 11:05 | disposition home or self-care (01) ==
LOC: EC 08:14
DX: K29.70 Gastritis, unspecified, without bleeding (principal); K58.9 Irritable bowel syndrome, unspecified; F41.9 Anxiety disorder, unspecified; Z53.20 Procedure and treatment not carried out because of patient's decision for unspecified reasons; Z79.899 Other long term (current) drug therapy; Z88.1 Allergy status to other antibiotic agents; Z88.8 Allergy status to other drugs, medicaments and biological substances; Z91.048 Other nonmedicinal substance allergy status; Z88.0 Allergy status to penicillin; Z88.2 Allergy status to sulfonamides; Z88.6 Allergy status to analgesic agent; Z90.49 Acquired absence of other specified parts of digestive tract
CPT/HCPCS: 99284; 96374; 96375; 96361; 36415; 93005; 80053; 82150; 83690; 84484; 85025; 81003; 74177; J2405; J2270; Q9967

== ENCOUNTER 2017-06-22 09:26 | Day surgery (SDC) | payer MEDICARE, BC ==
[2017-06-19 09:01] VITALS: BMI 28.0
[~2017-06-22 09:26] MED LIST: CLINDAMYCIN 900 MG in DEXTROSE 5% IN WATER 50 ML IVPB ONE; SODIUM CHLORIDE 0.9% 1,000 ML IV SCH
[2017-06-22 10:16] LABS: Basophils % (A) 1 %; CH 30.6; CHCM 33.4; Eosinophils # (A) 0.4 k/uL (0-0.7); Eosinophils % (A) 6 %; HCT 38.8 % (34.0-46.0); HDW 2.46; HGB 12.7 gm/dL (11.4-16.0); Luc # (Auto) 0.09; Luc % (Auto) 1; Lymphocytes # (A) 1.6 k/uL (1.0-4.8); Lymphocytes % (A) 23 %; MCH 30.2 pg (25.0-35.0); MCHC 32.8 g/dL (31.0-37.0); Mean Platelet Volume 6.8; Monocytes # (A) 0.3 k/uL (0-1.0); Monocytes % (A) 4 %; Neutrophils # (A) 4.7 k/uL (1.3-7.7); Neutrophils % (A) 66 %; RBC 4.22 m/uL (3.80-5.40); RDW 14.3 % (11.5-15.5); WBC 7.1 k/uL (3.8-10.6); WBC (Perox) 7.25
[2017-06-22 10:30] VITALS: TEMP 98
[2017-06-22] MEDS: MIDAZOLAM 2 MG/2 ML VIAL IV ONE ×2 (10:54→11:01)
[2017-06-22] MEDS ORDERED: diphenhydrAMINE 50 MG/ML 1 ML VIAL IVP ONE (10:54)
[2017-06-22] MEDS: CLINDAMYCIN 600 MG in SODIUM CHLORIDE 0.9% IRRIGATIO 250 ML IRRIGATION ONE ×2 (10:56→11:18)
[2017-06-22] MEDS ORDERED: LIDOCAINE 2% INJ 20 MG/ML SQ ONE ×2 (10:59→11:14)
[2017-06-22] MEDS ORDERED: fentaNYL (PF) 50 MCG/ML 2 ML AMP IV ONE (11:11)
--- NOTE | 2017-06-22 13:18 | PCN ---
PROCEDURE NOTE DATE OF SERVICE: June 22, 2017. PROCEDURE PERFORMED: Pulses generator change dual-chamber device. PERFORMED BY: Dr. Angelica Meadows. SEDATION: Moderate conscious sedation time was 36 minutes. CLINICAL INFORMATION: Mrs. Jazmin Martin is a 77-year-old lady with a dual-chamber pacemaker that was initially placed 20 years ago. The last pulse generator change was in 2007. Her pacemaker has been functioning well, but the pulse generator has reached [place] and therefore she was advised a elective generator change. The rationale, risks, benefits, options were explained and the patient was brought in for the procedure electively. PROCEDURE NOTE: I did a fluoroscopy to us assess the orientation of the leads to the pulse generator device. The patient was sedated with a combination of Versed and also some fentanyl. She was also given a small dose of Benadryl as well intravenously. Under strict aseptic precautions and local anesthesia, a linear incision was made over the pulse generator. Blunt dissection was carried out with and cautery and the existing pulse generator was explanted. Prior to the procedure the leads were checked. I unscrewed the atrial lead as well as the ventricular lead and using a new pulse generator these leads were screwed in. The leads were independently checked. The leads were functioning very well with good sensitivities and thresholds. The new pulse generator was then placed inside the pocket and the pocket was closed in 2 layers. Excellent hemostasis was secured. The patient tolerated the procedure well without complications. She received antibiotics. She received IV antibiotics during the procedure and I also irrigated the wound with antibiotic solution. Procedure was performed uneventfully. Good hemostasis was secured. Pulse generator details: The pulse generator that was explanted was originally placed on June 12, 2008. This was a [employer] device that was explanted. The explanted device was a Victory XL [id number] [employer]. The initial atrial lead was placed in February 15. The atrial lead barn worker was [employer] Tendril [id number] DC/46 cm, serial #[id number]. The ventricular lead was a [employer] model was Tendril SD X 1388 DC/52, [id number] implant. The initial lead was placed on February 15, 1998. The new pulse generator that was placed with a MRI compatible device barn worker was [employer] In[employer]ero, model issue Assurity MRI 2272, serial #[id number], implant date is June 22. The atrial capture was at 0.75 V at 0.4 milliseconds. The P waves were 2.7 mV. The ventricular threshold was 1.0 V at 0.6 milliseconds. The R-waves were 7.7 mV. The impedance in the atrial lead was 390 ohms and impedance in the ventricular lead was 410 ohms. The lower rate was set at 50 and high rate was set at 120 beats per minute. The patient tolerated the procedure well without complications. MMODL / IJN: [id number] /
[2017-06-22 14:08] LABS: Anion Gap 8 mmol/L; Blood Urea Nitrogen 26 mg/dL (7-17); Calcium 8.8 mg/dL (8.4-10.2); Carbon Dioxide 25 mmol/L (22-30); Chloride 107 mmol/L (98-107); Glucose 79 mg/dL (74-99); Non-African American GFR(MDRD) >60 (>60 ml/min/1.73 sqM); Potassium 4.4 mmol/L (3.5-5.1); Sodium 140 mmol/L (137-145)
[2017-06-22 14:21] VITALS: RESP 16
[2017-06-22 15:43] VITALS: BP 132/67; PULSE 52
== END 2017-06-22 15:41 | disposition home or self-care (01) ==
LOC: CATHEP 09:26
PROVIDERS: ATTEND Internal Medicine Interventional Cardiology
DX: Z45.010 Encounter for checking and testing of cardiac pacemaker pulse generator [battery] (principal); R00.2 Palpitations; R07.9 Chest pain, unspecified; R55 Syncope and collapse; J45.909 Unspecified asthma, uncomplicated; F41.9 Anxiety disorder, unspecified; R09.89 Other specified symptoms and signs involving the circulatory and respiratory systems; E78.5 Hyperlipidemia, unspecified; E03.9 Hypothyroidism, unspecified; E11.9 Type 2 diabetes mellitus without complications; Z79.2 Long term (current) use of antibiotics; Z79.899 Other long term (current) drug therapy; Z88.6 Allergy status to analgesic agent; Z88.1 Allergy status to other antibiotic agents; Z88.0 Allergy status to penicillin; Z88.2 Allergy status to sulfonamides; Z88.8 Allergy status to other drugs, medicaments and biological substances; Z91.048 Other nonmedicinal substance allergy status
CPT/HCPCS: 33228; 80048; 85025; C1785; J2001; J2250; J1200; J3010

== ENCOUNTER → 2017-09-10 | Outpatient (CLI) | payer MEDICARE, BC ==
--- NOTE | 2017-09-10 14:58 | CT ---
EXAMINATION TYPE: CT chest wo con DATE OF EXAM: 09/10/2017 COMPARISON: NONE HISTORY: No complaints at time of scan. Abnormal CXR CT DLP: 319.[address] of the chest was performed with lung and mediastinal window settings submitted. The la ck of contrast limits evaluation of the vascular, mediastinal and parenchymal structures including th e upper abdomen. LUNGS: The lungs are clear and free of infiltrate. No atelectasis. No pulmonary nodule or mass is de tected. No pleural effusion. No CT evidence of interstitial lung disease. MEDIASTINUM/SARAH: Thoracic aorta is of normal caliber with limited evaluation given lack of contrast . The heart is not enlarged. No evidence for mediastinal mass. No lymph nodes greater than 1cm. D ense mitral annular calcifications seen. UPPER ABDOMEN: No significant abnormality is seen. OTHER: No significant other abnormality. IMPRESSION: 1. No evidence for suspicious pulmonary nodule or mass at this time.
== END | disposition home or self-care (01) ==
LOC: RADCTMAIN 13:14
PROVIDERS: ATTEND Family Medicine
DX: R93.8 Abnormal findings on diagnostic imaging of other specified body structures (principal)
CPT/HCPCS: 71250

== ENCOUNTER → 2017-11-06 | Outpatient (CLI) | payer MEDICARE, BC ==
--- NOTE | 2017-11-09 11:35 | MM ---
Reason for exam: screening (asymptomatic). Last mammogram was performed 1 year and 1 month ago. History: Patient is postmenopausal. Physical Findings: A clinical breast exam by your physician is recommended on an annual basis and results should be correlated with mammographic findings. MG 3D Screening Mammo W/Cad Bilateral CC and MLO view(s) were taken. Prior study comparison: September 30, 2016, bilateral MG 3d screening mammo w/cad. May 26, 2014, bilateral MG screening mammo w CAD. There are scattered fibroglandular densities. Benign calcifications. No significant changes when compared with prior studies. ASSESSMENT: Benign, BI-RAD 2 RECOMMENDATION: Routine screening mammogram of both breasts in 1 year.
== END ==
LOC: RADMAMWWP 15:02
PROVIDERS: ATTEND Family Medicine
DX: Z12.31 Encounter for screening mammogram for malignant neoplasm of breast (principal)
CPT/HCPCS: 77063; 77067

== ENCOUNTER → 2017-12-10 | Outpatient (CLI) | payer MEDICARE, BC | END | disposition home or self-care (01) | LOC: LABPAT 11:26 | PROVIDERS: ATTEND Orthopaedic Surgery | DX: Z01.812 Encounter for preprocedural laboratory examination (principal) | CPT/HCPCS: 87070 ==

== ENCOUNTER 2017-12-22 06:29 | Inpatient (IN) | payer MEDICARE, BC ==
[2017-12-17 16:14] VITALS: BMI 31.3
--- NOTE | 2017-12-21 08:56 | HP ---
HISTORY AND PHYSICAL CHIEF COMPLAINT: Right shoulder pain. 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 She notes diffuse pain with attempted overhead use. She is having significant night symptoms. She has tried medications in addition to injections without much relief. She had a previous right shoulder surgery in 2003. PAST MEDICAL HISTORY: Significant for heart disease and arthritis. PAST SURGICAL HISTORY: Significant for previous right shoulder surgery. She also has a history of cardiac catheterization and pacemaker placement, cholecystectomy, cataract removal, and hysterectomy. She has had a previous total knee arthroplasty as well. CURRENT MEDICATIONS: 1. Ativan. 2. Dicyclomine. 3. Lomotil. 4. Metoprolol. ALLERGIES: She has allergies to PENICILLIN, BETADINE, SULFA, CIPRO, STREPTOMYCIN, CODEINE, KEFLEX. FAMILY HISTORY: Significant for cancer and heart disease. SOCIAL HISTORY: Negative for current tobacco or alcohol use. REVIEW OF SYSTEMS: Sixteen-point review of systems otherwise reviewed and is noncontributory. PHYSICAL EXAMINATION: On examination, the patient is approximately 4 feet 11 inches, 148 pounds of endomorphic habitus. HEENT exam is nonfocal. Neck is supple. Active range of motion of the right shoulder. Forward elevation 70 degrees, external rotation with arm side 10 degrees, internal rotation to the buttock. She has moderate subacromial crepitus. Passively, I am able to forward elevate her to 80 degrees. Motor strength is 4+/5 for external rotation and abduction. Impingement test, Neer, and Speed tests are positive. Her distal neurovascular exam otherwise appears intact in the right upper extremity. X-rays to include AP and scapular outlet views show severe glenohumeral joint osteoarthrosis with [id number] changes. The humeral head to acromial distance appears maintained. IMPRESSION: 1. Right severe glenohumeral joint osteoarthrosis. 2. History of heart disease with pacemaker placement. RECOMMENDATIONS: I talked to the patient at length regarding her condition and treatment options. At this point, she is quite symptomatic and limited because of pain related to her osteoarthrosis despite extensive conservative measures. After thorough discussion, she opts to proceed with surgery. We will plan to proceed with right total shoulder arthroplasty versus reverse total shoulder arthroplasty. We will likely institute DVT prophylaxis postoperatively. The patient underwent preoperative cardiac evaluation by Dr. Kathy Meadows. GLENN / АНДРЕЙN: [id number] /
[~2017-12-22 06:29] MED LIST changes: +ACETAMINOPHEN TAB 500 MG TAB PO ONE; +MELOXICAM 7.5 MG TAB PO ONE; +MIDAZOLAM 2 MG/2 ML VIAL IV PRN; +MORPHINE SULFATE 4 MG/ML SYRINGE IV PRN; -SODIUM CHLORIDE 0.9% 1,000 ML IV SCH; +TRANEXAMIC ACID 1,000 MG in SODIUM CHLORIDE 0.9% 50 ML IVPB ONE
[2017-12-22] MEDS: ONDANSETRON ODT 4 MG TAB PO ONE ×2 (06:49→11:39)
[2017-12-22] MEDS ORDERED: LIDOCAINE 1% 20 ML VIAL (10MG/ML) FOR IV START INTRADERMA ONE (06:50)
[2017-12-22] MEDS: LACTATED RINGERS 1,000 ML IV SCH (07:08)
[2017-12-22] MEDS ORDERED: ONDANSETRON 4 MG/2 ML VIAL IVP ONE (07:19)
[2017-12-22] MEDS ORDERED: DEXAMETHASONE SOD PHOS (MDV) 100 MG/10 ML VIAL ONE (08:07)
[2017-12-22] MEDS ORDERED: diphenhydrAMINE 50 MG/ML 1 ML VIAL ONE (08:07)
[2017-12-22] MEDS ORDERED: MIDAZOLAM 2 MG/2 ML VIAL ONE (08:07)
[2017-12-22] MEDS ORDERED: ROPIVACAINE 5 MG/ML 30 ML VIAL ONE (08:07)
[2017-12-22] MEDS ORDERED: PROPOFOL 10 MG/ML 20 ML VIAL IV ONE (08:07)
[2017-12-22] MEDS ORDERED: PHENYLEPHRINE-0.9% NACL SYG 1 MG/10 ML SYRINGE ONE (08:07)
[2017-12-22] MEDS ORDERED: LIDOCAINE 1% INJ 10MG/ML (20 ML MDV) ONE (08:07)
[2017-12-22] MEDS ORDERED: TRANEXAMIC ACID 1,000 MG/10 ML VIAL ONE (08:07)
[2017-12-22] MEDS ORDERED: SUCCINYLCHOLINE CHLORIDE 100 MG/5 ML SYR IV ONE (08:07)
[2017-12-22] MEDS ORDERED: SODIUM CHLORIDE 0.9% 100 ML BAG ONE (08:07)
[2017-12-22] MEDS ORDERED: CLINDAMYCIN 1,800 MG in SODIUM CHLORIDE 0.9% IRRIGATIO 3,000 ML IRRIGATION ONE (08:44)
[2017-12-22] MEDS ORDERED: LACTATED RINGERS 1,000 ML IV ONE (09:26)
[2017-12-22] MEDS ORDERED: SENNOSIDES-DOCUSATE SODIUM 1 EACH TAB PO PRN (09:47)
[2017-12-22] MEDS ORDERED: ONDANSETRON 4 MG/2 ML VIAL IVP PRN (09:47)
[2017-12-22] MEDS ORDERED: MORPHINE SULFATE 4 MG/ML SYRINGE IV PRN (09:47)
[2017-12-22] MEDS ORDERED: HYDROcodone/APAP 5-325MG 1 EACH TAB PO PRN (09:47)
[2017-12-22] MEDS ORDERED: ACETAMINOPHEN TAB 325 MG TAB PO PRN (09:50)
--- NOTE | 2017-12-22 10:16 | P.OP ---
Date of Procedure: 12/22/17 Preoperative Diagnosis: Right severe glenohumeral joint osteoarthrosis Postoperative Diagnosis: Same Procedure(s) Performed: Right total shoulder arthroplasty Implants: [employer] size 8 press-fit humeral stem, size 8 metaphysis, 48 mm +21 mm eccentric humeral head, 44 mm pegged cemented glenoid component. Anesthesia: maricruz LUGO Surgeon: Thiago Randle Body And Fender Worker #1: Finesse Noriega Estimated Blood Loss (ml): 250 Pathology: other (Humeral head) Condition: stable Disposition: PACU Indications for Procedure: The patient's a 77-year-old female who presents with progressive right shoulder pain secondary to osteoarthrosis despite conservative measures. A discussion of the risks and benefits of operative intervention versus continued conservative measures was made with the patient. She opted to proceed with surgery. Operative risks to include infection, neurovascular injury, development of blood clots, possible component loosening, possible component failure and need for subsequent procedure was discussed. Informed consent was obtained. Operative Findings: As below Description of Procedure: the patient was brought to the operating room, and after induction of general anesthesia was placed in a beachchair position. The bony prominences were appropriately padded. The right upper extremity was prepped and draped in normal fashion. The bony outlines the acromion, distal clavicle, and coracoid process were outlined with a skin marker. A deltopectoral incision was then made. The skin was incised sharply. Subcutaneous tissues were divided bluntly. Electrocautery was used for hemostasis. The deltopectoral interval was identified and the cephalic vein gently retracted laterally with the deltoid. Subdeltoid adhesions were bluntly dissected. A self-retaining retractor was placed. The upper one third of the pectoralis major was released to help facilitate exposure. The clavipectoral fascia was opened and the conjoined tendon gently retracted medially. The biceps was identified. The bicipital groove was opened. The rotator interval was opened. The biceps was tenotomized and allowed to retract distally. A small sagittal saw was used to perform the lesser tuberosity osteotomy. The capsule was released from the humeral neck and head sharply clearly exposing the whole humeral head. The shoulder was gently dislocated. The rotator cuff appeared overall intact. The canal was then reamed by hand up to a size 8 reamer. There was good distal fit and chatter. The osteotomy guide was placed planning on 30 of retroversion. I plan on resecting at the level of the rotator cuff insertion on the greater tuberosity. The humeral head cut was then made. The inferior osteophytes were carefully removed flush with the council cortical bone. The glenoid was then exposed with a posterior and anterior retractor. The labrum was released from the 12:00 to 6 o'clock position. The biceps was removed from the superior labrum. I felt there was adequate glenoid exposure at this point. The guidepin was then placed in the center of the glenoid. The glenoid was reamed down to a bleeding bony surface with a 44 mm reamer. The glenoid is most appropriately at 44 mm. The central peg hole was drilled. The guide was then placed in the peripheral peg holes were drilled. The trial 44 mm glenoid component was then fully seated and had good anterior to posterior and superior to inferior fit. This was then removed. The glenoid was prepared with pulsatile lavage and dried. Cement was pressurized with a syringe and the peripheral peg holes and excess cement was removed. The central peg was bone grafted. A glenoid component was then inserted and was fully seated. This was held in place until the cement had sufficiently hardened. Attention was then again paid towards preparing the proximal humerus. The appropriate broach was inserted in 30 of retroversion and was fully seated. The trial component was inserted in the same orientation and was fully seated. A 48 mm x 21 mm eccentric humeral head was placed and the shoulder was gently reduced. I had good stability in flexion and extension with internal and external rotation. I felt there was adequate scientologist of soft tissue tension. The shoulder was gently dislocated. The trial components were removed. Pulsatile lavage was again utilized. I placed #2 Ethibond sutures laterally for reattachment of the lesser tuberosity. The final size 8 humeral stem with a body was gently impacted. This is placed in 30 of retroversion. The final cobalt chrome humeral head measuring 48 mm x 21 mm was placed in the appropriate orientation. This was gently impacted. The shoulder again was gently reduced and taken through range of motion and felt to be stable. The rotator interval was closed with #2 Ethibond suture. The lesser tuberosity was reattached with the previously placed #2 Ethibond suture. The deltopectoral interval was closed with interrupted 2-0 Vicryl sutures. The subcutaneous tissues were reapproximated interrupted 2-0 Vicryl sutures. The skin was reprepped with 3-0 subcuticular Prolene suture. Steri-Strips were applied. A sterile dressing was applied in addition to a sling. The patient was awoken from general anesthesia and transferred to recovery room in good condition. Blood loss was estimated 250 mL. No complications were incurred. Sponge and needle counts were correct in the case.
--- NOTE | 2017-12-22 10:53 | XR ---
EXAMINATION TYPE: XR shoulder limited RT DATE OF EXAM: 12/22/2017 COMPARISON: NONE HISTORY: Postop total right shoulder TECHNIQUE: One view submitted FINDINGS: Postsurgical change appears in near-anatomic alignment. Soft tissue edema and emphysema not ed. IMPRESSION: Postoperative changes
--- NOTE | 2017-12-22 15:47 | P.ONQ ---
Anesthesiology Proc Note - PNB - Peripheral Nerve Block Performed Right Interscalene Single Time Out Performed: Yes ([id number]) Procedure Start Time: 08:55 Procedure Stop Time: 09:00 Indication: Acute Post-Operative Pain, Dx/Pain Location (Right Shoulder Pain), Requested by physician Sedation Type: Sedate with meaningful contact maintained Preparation: Sterile Prep Position: Supine Catheter: Indwelling Needle Types: On-Q Needle Size: 50mm (2") Needle Gauge: 21 Technique: Ultrasound Injectate: 0.5% Ropivacaine (see comment for volume) (20ml) Blood Aspirated: No Pain Paresthesia on Injection Noted: No Resistance on Injection: Normal Events: Uneventful and Well Tolerated
[2017-12-22] MEDS: CLINDAMYCIN 900 MG in DEXTROSE 5% IN WATER 50 ML IVPB SCH ×2 (16:26)
[2017-12-22 21:13] VITALS: RESP 16
[2017-12-22] MEDS ORDERED: diphenhydrAMINE 50 MG/ML 1 ML VIAL IVP PRN (21:15)
[2017-12-22] MEDS ORDERED: LORazepam 1 MG TAB PO PRN (21:16)
[2017-12-22] MEDS: MORPHINE SULFATE 4 MG/ML SYRINGE IV PRN (21:29)
[2017-12-22] MEDS ORDERED: LORazepam 1 MG TAB PO SCH (22:00)
--- NOTE | 2017-12-22 23:12 | CONS ---
CONSULTATION DATE OF CONSULTATION: 12/22/2017 REASON FOR CONSULTATION: Medical management requested by Dr. Randle. CONSULTATION: This is a 77-year-old patient of Dr. Sylvester whose chronic stable medical conditions include hypertension, irritable bowel syndrome, insomnia. The patient has undergone a right total total arthroplasty surgery. Pain is controlled. No nausea, vomiting. No chest pain. Denies any cardiac history. Patient did tolerate some supper. Lying in bed. REVIEW OF SYSTEMS: CONSTITUTIONAL: None. HEENT: None. RESPIRATORY: None. CARDIOVASCULAR: None. GASTROINTESTINAL: None. GENITOURINARY: None. MUSCULOSKELETAL: Arthritic pain, especially in the hands. DERMATOLOGICAL: None. HEMATOLOGIC: None. LYMPHATIC: None. PSYCHIATRY: None. NEUROLOGICAL: Trouble sleeping. PAST MEDICAL HISTORY: Hypertension, osteoarthritis, irritable bowel syndrome, insomnia. PAST SURGICAL HISTORY: Appendectomy, back surgery, cholecystectomy, ear surgery, hysterectomy, rotator cuff surgery, laser eye surgery, back milan, screws, permanent pacemaker. SOCIAL HISTORY: Does not smoke. Alcohol occasionally. Lives by herself. FAMILY HISTORY: Lung cancer. HOME MEDICATIONS: 1. Ocuvite 2 tablets p.o. daily. 2. Systane Ultra 1 drop both eyes b.i.d. 3. Lopressor 25 mg p.o. daily. 4. Ativan 2 mg p.o. q.h.s. 5. Vibramycin 100 mg p.o. daily. 6. Lomotil 1 tablet p.o. p.r.n. 7. Bentyl 10 mg p.o. q.i.d. 8. Probiotic 1 tablet p.o. daily. 9. Xarelto being started here. ALLERGIES: List noted in the electronic records from this admission. EXAMINATION: Temperature 97.4, pulse 55, respirations 16, blood pressure 95/61, pulse ox 94% on 3L. GENERAL APPEARANCE: Well-built, BMI 31.3. Lying in bed, comfortable, awake. EYES: Pupils equal. Conjunctivae normal. HEENT: External appearance of nose and ears normal. Oral cavity normal. NECK: JVD not raised. Mass not palpable. RESPIRATORY: Effort normal. Lungs are clear. CARDIOVASCULAR: First and second sounds normal. No edema. ABDOMEN: Soft, nontender. Liver and spleen not palpable. LYMPHATIC: No lymph node palpable in neck or axillae. PSYCHIATRY: Alert and orient x3. Mood and affect normal. NEUROLOGICAL: Pupils equal. Cranial nerve grossly intact. Power and sensation grossly intact. EXTREMITIES: Right upper extremity in a sling. Fingers have good sensation. INVESTIGATION: None. ASSESSMENT: 1. Right shoulder surgery. 2. Essential hypertension. 3. Primary osteoarthritis, especially of the hands. 4. Irritable bowel syndrome. 5. Chronic insomnia. 6. Obesity, BMI 31.3. PLAN: Patient's home medications are resumed. The patient has Venodyne boots for DVT prophylaxis. The patient should follow up with Dr. Sylvester upon discharge. Thank you, Dr. Randle. MMODL / IJN: [id number] /
[2017-12-23] MEDS: ARTIFICIAL TEARS-HYPROMELLOSE DROPS 15 ML BTL BOTH EYES SCH ×2 (00:25→07:50)
[2017-12-23] MEDS: DOXYCYCLINE MONOHYDRATE 100 MG CAPSULE PO SCH ×2 (00:26→07:51)
[2017-12-23] MEDS: CLINDAMYCIN 900 MG in DEXTROSE 5% IN WATER 50 ML IVPB SCH ×2 (00:26)
[2017-12-23] MEDS: DICYCLOMINE 10 MG CAP PO SCH ×3 (00:26→15:15)
[2017-12-23] MEDS: MORPHINE SULFATE 4 MG/ML SYRINGE IV PRN (00:27)
[2017-12-23] MEDS: HYDROcodone/APAP 5-325MG 1 EACH TAB PO PRN ×2 (02:51→14:12)
[2017-12-23 07:38] LABS: Basophils % (A) 0 %; Eosinophils # (A) 0.1 k/uL (0-0.7); Eosinophils % (A) 1 %; HCT 30.8 % (34.0-46.0); HGB 10.8 gm/dL (11.4-16.0); Lymphocytes # (A) 0.5 k/uL (1.0-4.8); Lymphocytes % (A) 5 %; MCH 30.8 pg (25.0-35.0); MCV 87.9 fL (80.0-100.0); Mean Platelet Volume 7.5; Monocytes # (A) 0.5 k/uL (0-1.0); Monocytes % (A) 5 %; Neutrophils # (A) 9.2 k/uL (1.3-7.7); Neutrophils % (A) 88 %; Platelet Count 159 k/uL (150-450); RDW 13.3 % (11.5-15.5); WBC 10.4 k/uL (3.8-10.6)
[2017-12-23 08:53] VITALS: BP 110/72; PULSE 70; TEMP 97.4
[2017-12-23] MEDS ORDERED: METOPROLOL TARTRATE 25 MG TAB PO SCH (09:00)
[2017-12-23] MEDS ORDERED: RIVAROXABAN 10 MG TAB PO SCH (09:00)
[2017-12-23] MEDS ORDERED: MORPHINE ORAL SOLN 10 MG/5 ML CUP PO PRN ×2 (11:04→11:05)
--- NOTE | 2017-12-23 11:57 | P.PN ---
Subjective Progress Note Date: 12/23/17 Principal diagnosis: Status post right total shoulder arthroplasty Date of admission: 12/23/2017 Date of discharge: 12/23/2017 Admission diagnosis: Status post right total shoulder arthroplasty Discharge diagnosis: Same Attending physician: Dr. Randle Surgical procedures: Right total shoulder arthroplasty Brief history: Patient is a 77-year-old female with a history of progressive primary right shoulder osteoarthritis. At this point patient has failed conservative treatment measures and has opted to proceed with a elective right total shoulder arthroplasty. Hospital course: Details of patient's surgery can be found in operative report. Patient tolerated the procedure well and was subsequently transported to orthopedic floor. Patient's orthopeidc and medical care was provided daily. Patient had daily laboratory tests performed for evaluation of overall blood counts. Patient had daily physical therapy to include strengthening range of motion as well as education with walker ambulation. Patient was treated with Xarelto for their postoperative DVT prophylaxis during their inpatient stay. Patient was noted to have a relatively uneventful postoperative course. Patient reported satisfactory pain control with oral pain medications by postoperative day 0. Patient showed satisfactory progress with physical therapy. Patient moved steadily through the program and had no difficulty meeting the goals by postoperative day 1. Given patient's otherwise satisfactory course and having met physical therapy goals, plan is to discharge patient home on postoperative day 1. Discharge condition/disposition: Patient will be discharged home in stable condition. Discharge medications: Instructions are given on resumption of patient's normal daily medications per primary care recommendation, in addition patient will be prescribed [place] 5 mg/325 mg, Pepcid 20 mg, Xarelto 10 mg. Discharge instructions: 1. Wound care and infection precautions, keep incision dry and covered while showering, no lotions, creams, moisturizers. No soaking, tubs, pools, hottubs. Do not scrub over the incision. 2. Utilize arm sling, pendulum exercises daily 3. Ice and elevate when necessary. Do not exceed 20 minutes per hour with ice pack. 4. Utilize compression sleeve until seen at first follow up appointment. 5. Visiting nursing care. 6. Home physical therapy. 7. Pain meds and anticoagulants per prescription. 8. Pain medication has potential to cause constipation. Increase oral fluid and fiber intake. Contact primary care provider if you have not had a bowel movement within 48 hours after discharge 9. No anti-inflammatory medication until discussed at first post operative visit, this including Motrin, Aleve, Mobic, Diclofenac. 10. Follow up in office at 2 weeks postop with Lazarus Noriega PA-C 11. Follow up with your primary care doctor 7-10 days after discharge. 12. Contact [facility] with any questions, . Objective - Vital Signs Vital signs: Vital Signs Temp 97.4 F L 12/23/17 07:00 Pulse 70 12/23/17 07:00 Resp 16 12/23/17 00:05 BP 110/72 12/23/17 07:00 Pulse Ox 98 12/23/17 07:00 Intake & Output 12/22/17 12/23/17 12/23/17 18:59 06:59 18:59 Intake Total 1407 1148 Output Total 1780 350 700 Balance -373 798 -700 Intake: IV 1407 Intake, IV Titration 550 Amount Clindamycin 900 mg In 150 Dextrose 5% in Water 50 ml @ 100 mls/hr IVPB Q8HR DIOGO Rx#:[id number] Lactated Ringers 1,000 ml 400 @ 50 mls/hr IV .Q20H DIOGO Rx#:[id number] Oral 598 Output: Urine 1530 350 700 Uretheral (Park) 700 Estimated Blood Loss 250 Other: Voiding Method Indwelling Catheter Indwelling Catheter Indwelling Catheter # Voids 1 - Exam Right upper extremity: Incision is clean, dry and intact. Soft tissue swelling and ecchymosis present along the medial and lateral aspects of the arm. Sensation to light touch throughout the extremities intact. Attention and flexion are intact at the wrist. His radial pulses 2+ - Labs CBC & Chem 7: 12/23/17 07:00 Labs: Abnormal Lab Results - Last 24 Hours (Table) 12/23/17 Range/Units 07:00 RBC 3.50 L (3.80-5.40) m/uL Hgb 10.8 L (11.4-16.0) gm/dL Hct 30.8 L (34.0-46.0) % Neutrophils # 9.2 H (1.3-7.7) k/uL Lymphocytes # 0.5 L (1.0-4.8) k/uL Assessment and Plan Plan: Assessment: Postoperative day 1 status post right total shoulder arthroplasty Plan: Pain control, we'll discharge home on oral medication GI and DVT prophylaxis, Xarelto 10 mg and Pepcid 20 mg Wound care instructions were discussed Home therapy and nursing after discharge Medical recommendations Discharge planning: Patient likely will be discharged home today Time with Patient: Less than 30
--- NOTE | 2017-12-23 12:01 | P.DS ---
Providers Date of admission: 12/22/17 06:29 Expected date of discharge: 12/23/17 Attending physician: Thiago Randle Primary care physician: Farooq Sylvester [facility] Course: Date of admission: 12/22/2017 Date of discharge: 12/23/2014 Admission diagnosis: Status post right total shoulder arthroplasty Discharge diagnosis: Same Attending physician: Dr. Randle Surgical procedures: Right Total shoulder arthroplasty Brief history: Patient is a 77-year-old female with a history of with progressive primary right shoulder osteoarthritis. At this point patient has failed conservative treatment measures and has opted to proceed with a elective right total shoulder arthroplasty. Hospital course: Details of patient's surgery can be found in operative report. Patient tolerated the procedure well and was subsequently transported to orthopedic floor. Patient's orthopeidc and medical care was provided daily. Patient had daily laboratory tests performed for evaluation of overall blood counts. Patient had daily physical therapy to include strengthening range of motion as well as education with walker ambulation. Patient was treated with Xarelto for their postoperative DVT prophylaxis during their inpatient stay. Patient was noted to have a relatively uneventful postoperative course. Patient reported satisfactory pain control with oral pain medications by postoperative day 0. Patient showed satisfactory progress with physical therapy. Patient moved steadily through the program and had no difficulty meeting the goals by postoperative day 1. Given patient's otherwise satisfactory course and having met physical therapy goals, plan is to discharge patient home on postoperative day 1. Discharge condition/disposition: Patient will be discharged home in stable condition. Discharge medications: Instructions are given on resumption of patient's normal daily medications per primary care recommendation, in addition patient will be prescribed [place] 5 mg/325 mg, Pepcid 20 mg, Xarelto 10 mg. Discharge instructions: 1. Wound care and infection precautions, keep incision dry and covered while showering, no lotions, creams, moisturizers. No soaking, tubs, pools, hottubs. Do not scrub over the incision. 2. Utilize arm sling, pendulum exercises daily 3. Ice and elevate when necessary. Do not exceed 20 minutes per hour with ice pack. 4. Utilize compression sleeve until seen at first follow up appointment. 5. Visiting nursing care. 6. Home physical therapy. 7. Pain meds and anticoagulants per prescription. 8. Pain medication has potential to cause constipation. Increase oral fluid and fiber intake. Contact primary care provider if you have not had a bowel movement within 48 hours after discharge 9. No anti-inflammatory medication until discussed at first post operative visit, this including Motrin, Aleve, Mobic, Diclofenac. 10. Follow up in office at 2 weeks postop with Lazarus Noriega PA-C 11. Follow up with your primary care doctor 7-10 days after discharge. 12. Contact [facility] with any questions, . Procedures: Right total shoulder arthroplasty Patient Condition at Discharge: Good Plan - Discharge Summary Discharge Rx Participant: Yes New Discharge Prescriptions: New Rivaroxaban [Xarelto] 10 mg PO DAILY #12 tab Famotidine [Pepcid] 20 mg PO DAILY #30 tablet Hydrocodone/Acetaminophen [[place] 5-325] 1 each PO Q6HR PRN #40 tab PRN Reason: Pain No Action Vit A,C & E/Lutein/Minerals [Ocuvite with Lutein Tablet] 2 tab PO DAILY B Infantis/B Ani/B Ryan/B Bifid [Probiotic 4X Caplet] 1 tab PO DAILY Metoprolol Tartrate [Lopressor] 25 mg PO DAILY LORazepam [Ativan] 2 mg PO HS Dicyclomine [Bentyl] 10 mg PO QID Diphenox-Atrop 2.5-0.025 mg [Lomotil] 1 tab PO DAILY PRN PRN Reason: Loose Stool Propylene Glycol/Peg 400 [Systane Ultra 0.4-0.3% Eye Drp] 1 drop BOTH EYES BID Doxycycline Hyclate [Vibramycin] 100 mg PO BID Discharge Medication List B Infantis/B Ani/B Ryan/B Bifid [Probiotic 4X Caplet] 1 tab PO DAILY 01/13/14 [ History] Vit A,C & E/Lutein/Minerals [Ocuvite with Lutein Tablet] 2 tab PO DAILY [History] Dicyclomine [Bentyl] 10 mg PO QID 11/09/16 [History] Diphenox-Atrop 2.5-0.025 mg [Lomotil] 1 tab PO DAILY PRN 11/09/16 [History] LORazepam [Ativan] 2 mg PO HS 11/09/16 [History] Metoprolol Tartrate [Lopressor] 25 mg PO DAILY 11/09/16 [History] Propylene Glycol/Peg 400 [Systane Ultra 0.4-0.3% Eye Drp] 1 drop BOTH EYES BID 06/19/17 [History] Doxycycline Hyclate [Vibramycin] 100 mg PO BID 12/17/17 [History] Rivaroxaban [Xarelto] 10 mg PO DAILY #12 tab 12/22/17 [Rx] Famotidine [Pepcid] 20 mg PO DAILY #30 tablet 12/23/17 [Rx] Hydrocodone/Acetaminophen [[place] 5-325] 1 each PO Q6HR PRN #40 tab 12/23/17 [Rx] Follow up Appointment(s)/Referral(s): Finesse Noriega PAC [[facility]] - 01/06/18 2:40 pm Farooq Sylvester MD [Primary Care Provider] - 12/30/17 12:00 pm Activity/Diet/Wound Care/Special Instructions: Orthopedic Discharge Instructions: 1. Wound care and infection precautions, keep incision dry and covered while showering, no lotions, creams, moisturizers. No soaking, pools, hot tubs. Do not scrub over incision. 2. Utilize arm sling, pendulum exercises daily 3. Ice and elevate when necessary. Do not exceed 20 minutes per hour with ice pack. 4. Utilize compression sleeve until seen at first follow up appointment. 5. Visiting nursing care. 6. Home physical therapy. 7. Pain meds and anticoagulants per prescription. 8. Pain medication has potential to cause constipation. Increase oral fluid and fiber intake. Contact primary care provider if you have not had a bowel movement within 48 hours after discharge. 9. No anti-inflammatory medication until discussed at first post operative visit, this including Motrin, Aleve, Mobic, Diclofenac. 10. Follow up in office at 2 weeks postop with Lazarus Noriega PA-C 11. Follow up with your primary care doctor 7-10 days after discharge. 12. Contact [facility] with any questions, . Discharge Disposition: HOME WITH HOME HEALTH SERVICES
[2017-12-23] MEDS: LACTATED RINGERS 1,000 ML IV SCH (15:15)
--- NOTE | 2017-12-23 23:55 | PN ---
PROGRESS NOTE DATE OF SERVICE: 12/23/2017 PRESENTING COMPLAINT: Right shoulder surgery. INTERVAL HISTORY: Patient is status post knee surgery, doing well. No nausea, vomiting. Did work with therapy. Did tolerate her breakfast. REVIEW OF SYSTEMS: Done for constitutional, cardiovascular, GI, pulmonary, musculoskeletal and findings as above. CURRENT MEDICATIONS: Reviewed. EXAMINATION: Temperature 97.4, pulse 70, respiration 15, blood pressure 110/72, pulse ox 98% on room air. GENERAL APPEARANCE: Sitting up, comfortable. EYES: Pupils are equal. Conjunctivae normal. HEENT: External appearance of ears and nose normal. Oral cavity normal. NECK: JVD not raised. Mass not palpable. Respiratory effort. Lungs are clear. CARDIOVASCULAR: First and second sounds normal. No edema. ABDOMEN: Soft, nontender. Liver and spleen not palpable. PSYCHIATRIC: Alert and oriented x3. Mood and affect is normal. INVESTIGATION: White count 10.4, hemoglobin 10.8. ASSESSMENT: 1. Right shoulder surgery. 2. Essential hypertension. 3. Primary osteoarthritis, especially in the hands. 4. Irritable bowel syndrome. 5. Chronic insomnia. 6. Obesity, BMI 31.3. PLAN: Continue medication and treatment plan. MMODL / IJN: [id number] /
== END 2017-12-23 14:20 | disposition home health service (06) | DRG 483 ==
LOC: 2ORMAIN 06:29 → 3SUR 10:20
PROVIDERS: ADMIT Orthopaedic Surgery; ATTEND Orthopaedic Surgery
PROC: 0RRJ0JZ Replacement of Right Shoulder Joint with Synthetic Substitute, Open Approach (ICD-10-PCS; principal; 2017-12-22 08:00)
DX: M19.011 Primary osteoarthritis, right shoulder (principal); J44.9 Chronic obstructive pulmonary disease, unspecified; E66.9 Obesity, unspecified; F51.04 Psychophysiologic insomnia; I10 Essential (primary) hypertension; K58.9 Irritable bowel syndrome, unspecified; E78.5 Hyperlipidemia, unspecified; F41.8 Other specified anxiety disorders; E03.9 Hypothyroidism, unspecified; E11.9 Type 2 diabetes mellitus without complications; H91.90 Unspecified hearing loss, unspecified ear; K21.9 Gastro-esophageal reflux disease without esophagitis; Z98.49 Cataract extraction status, unspecified eye; Z96.1 Presence of intraocular lens; Z68.31 Body mass index [BMI] 31.0-31.9, adult; Z79.899 Other long term (current) drug therapy; Z95.0 Presence of cardiac pacemaker; Z96.659 Presence of unspecified artificial knee joint; Z90.710 Acquired absence of both cervix and uterus; Z90.49 Acquired absence of other specified parts of digestive tract; Z87.440 Personal history of urinary (tract) infections; Z88.6 Allergy status to analgesic agent; Z88.1 Allergy status to other antibiotic agents; Z88.5 Allergy status to narcotic agent; Z88.0 Allergy status to penicillin; Z88.2 Allergy status to sulfonamides; Z88.8 Allergy status to other drugs, medicaments and biological substances; Z83.3 Family history of diabetes mellitus; Z82.3 Family history of stroke; Z80.9 Family history of malignant neoplasm, unspecified; Z82.49 Family history of ischemic heart disease and other diseases of the circulatory system; Z80.1 Family history of malignant neoplasm of trachea, bronchus and lung
CPT/HCPCS: 64415; 85025; 88300

== ENCOUNTER → 2018-02-15 | Outpatient (CLI) | payer MEDICARE, BC ==
[2018-02-15 12:35] LABS: Basophils % (A) 0 %; Eosinophils # (A) 0.3 k/uL (0-0.7); Eosinophils % (A) 7 %; HCT 36.9 % (34.0-46.0); HGB 12.2 gm/dL (11.4-16.0); Lymphocytes # (A) 0.9 k/uL (1.0-4.8); Lymphocytes % (A) 21 %; MCV 87.8 fL (80.0-100.0); Mean Platelet Volume 6.4; Monocytes # (A) 0.2 k/uL (0-1.0); Monocytes % (A) 5 %; Neutrophils # (A) 2.8 k/uL (1.3-7.7); Neutrophils % (A) 65 %; Platelet Count 185 k/uL (150-450); RBC 4.21 m/uL (3.80-5.40); RDW 13.5 % (11.5-15.5); WBC 4.4 k/uL (3.8-10.6)
[2018-02-15 13:49] LABS: Erythrocyte Sedimentation Rate 13 mm/hr (0-20)
== END | disposition home or self-care (01) ==
LOC: LABWHC1 11:13
PROVIDERS: ATTEND Orthopaedic Surgery
DX: T84.84XD Pain due to internal orthopedic prosthetic devices, implants and grafts, subsequent encounter (principal); Z96.611 Presence of right artificial shoulder joint
CPT/HCPCS: 36415; 85025; 85652; 86140

== ENCOUNTER → 2018-03-04 | Outpatient (CLI) | payer MEDICARE, BC ==
--- NOTE | 2018-03-04 13:28 | CT ---
EXAMINATION TYPE: CT lumbar spine wo con DATE OF EXAM: 03/04/2018 COMPARISON: 05/01/2015 HISTORY: 78-year-old female Low back pain, collapsed vertebrae TECHNIQUE: Contiguous axial scanning of the lumbar spine without IV contrast. Coronal and sagittal re constructions performed. CT DLP: 1364.7 mGycm Automated exposure control for dose reduction was used. FINDINGS: Extensive mitral annular calcifications. Pacer leads are present. Small hiatal hernia. Postsurgical changes of L1-S1 posterior fusion with laminectomies from L2 through L5 levels. Mild anterior wedging is redemonstrated of T12. The degree of anterior wedging is minimally increased with some more sclerosis along the inferior endplate anteriorly and slightly increased irregularity of the anterior cortical margin. However, no fracture lucency is seen. Paravertebral soft tissue thic kening seems to be slightly increased at this level, further sagittal image 29.. There is dish within the lower thoracic spine and accentuated kyphosis at the thoracolumbar junction as seen previously. Stable fixed grade 1 anterolisthesis at the fused L4-L5 level. On the right, there is moderate neural foraminal stenosis at L1-L2 and L2-L3 and moderate to severe a t L5-S1 not significantly changed from prior. On the left, mild neuroforaminal stenosis at L1-L2 and L2-L3 and moderate to severe at L5-S1, also no t significantly changed. IMPRESSION: 1. STATUS POST L1-S1 POSTERIOR FUSION AND LAMINECTOMIES FROM L2 THROUGH L5 LEVELS. FIXED GRADE 1 ANTE ROLISTHESIS AT THE FUSED L4-L5 LEVEL UNCHANGED. 2. MILD ANTERIOR WEDGING OF T12 IS MINIMALLY INCREASED FROM 2014 WITH SLIGHTLY MORE SCLEROSIS AND ANT ERIOR CORTICAL IRREGULARITY THOUGH NO FRACTURE LUCENCY IS SEEN. GIVEN MILD PARAVERTEBRAL SOFT TISSUE THICKENING, INCREASED FROM PRIOR, CORRELATE FOR POSSIBLE SUBACUTE ON CHRONIC COMPRESSION INJURY. 3. VARIABLE NEURAL FORAMINAL STENOSES OUTLINED ABOVE.
== END ==
LOC: RADCTMAIN 12:08
PROVIDERS: ATTEND Physical Medicine & Rehabilitation
DX: M43.16 Spondylolisthesis, lumbar region (principal); Z98.1 Arthrodesis status; M48.54XA Collapsed vertebra, not elsewhere classified, thoracic region, initial encounter for fracture; M48.061 Spinal stenosis, lumbar region without neurogenic claudication; M48.07 Spinal stenosis, lumbosacral region
CPT/HCPCS: 72131

== ENCOUNTER → 2018-10-01 | Outpatient (CLI) | payer MEDICARE, BC ==
[2018-10-01 14:35] LABS: Basophils % (A) 1 %; Eosinophils # (A) 0.3 k/uL (0-0.7); Eosinophils % (A) 7 %; HCT 39.2 % (34.0-46.0); HGB 13.1 gm/dL (11.4-16.0); Lymphocytes % (A) 24 %; MCH 30.3 pg (25.0-35.0); MCHC 33.4 g/dL (31.0-37.0); MCV 90.7 fL (80.0-100.0); Mean Platelet Volume 6.1; Monocytes # (A) 0.2 k/uL (0-1.0); Monocytes % (A) 5 %; Neutrophils # (A) 2.6 k/uL (1.3-7.7); Neutrophils % (A) 63 %; Platelet Count 174 k/uL (150-450); RBC 4.32 m/uL (3.80-5.40); RDW 13.6 % (11.5-15.5); WBC 4.1 k/uL (3.8-10.6)
[2018-10-01 14:42] LABS: Appearance,Urine Cloudy (Clear); Bacteria,Urine Occasional /hpf; Bilirubin,Urine Negative (Negative); Blood,Urine Negative (Negative); Color,Urine Yellow; Glucose,Urine (UA) Negative (Negative); Ketones,Urine 1+ (Negative); Leukocyte Esterase,Urine Negative (Negative); Mucus,Urine Rare /hpf; Nitrite,Urine Negative (Negative); Protein,Urine Negative (Negative); RBC,Urine 1 /hpf (0-5); Specific Gravity,Urine 1.017 (1.001-1.035); Squamous Epithelial Cell,Urine 14 /hpf (0-4); Urobilinogen,Urine <2.0 mg/dL (<2.0); WBC,Urine 2 /hpf (0-5)
[2018-10-01 16:00] LABS: Erythrocyte Sedimentation Rate 10 mm/hr (0-20)
[2018-10-01 19:13] LABS: ALT 18 U/L (8-44); AST 24 U/L (13-35); Alkaline Phosphatase 83 U/L (41-126); C Reactive Protein <0.4 mg/dL (0.0-0.8); Calcium 9.1 mg/dL (8.7-10.3); Carbon Dioxide 28.1 mmol/L (21.6-31.8); Chloride 104 mmol/L (96-109); Cholesterol 207 mg/dL (0-200); Creatine Kinase 40 U/L (26-186); Globulin 2.1 g/dL (1.6-3.3); Glucose 74 mg/dL (70-110); LDL Cholesterol,Calculated 130.4 mg/dL (0.0-131.0); Magnesium 1.8 mg/dL (1.5-2.4); Phosphorus 4.1 mg/dL (2.4-5.1); Potassium 4.1 mmol/L (3.5-5.5); Sodium 140 mmol/L (135-145); Total Bilirubin 0.6 mg/dL (0.3-1.2); Total Protein 6.3 g/dL (6.2-8.2); Uric Acid 5.8 mg/dL (2.9-7.7)
[2018-10-01 22:30] LABS: Hemoglobin A1C 5.5 % (4.0-6.0)
== END | disposition home or self-care (01) ==
LOC: LABWHC1 12:22
PROVIDERS: ATTEND Internal Medicine
DX: E78.5 Hyperlipidemia, unspecified (principal); I10 Essential (primary) hypertension; E55.9 Vitamin D deficiency, unspecified; D64.9 Anemia, unspecified; E11.9 Type 2 diabetes mellitus without complications; R31.9 Hematuria, unspecified; R07.9 Chest pain, unspecified
CPT/HCPCS: 36415; 80053; 80061; 81001; 82306; 82550; 83036; 83735; 84100; 84443; 84550; 85025; 85652; 86140

== ENCOUNTER → 2018-10-04 | Outpatient (CLI) | payer MEDICARE, BC ==
--- NOTE | 2018-10-05 09:12 | XR ---
EXAMINATION TYPE: XR chest 2V DATE OF EXAM: 10/04/2018 COMPARISON: 11/09/2016 TECHNIQUE: PA and lateral views submitted. HISTORY: Chest pain FINDINGS: The lungs are clear and there is no pneumothorax or pleural effusion. Atherosclerotic change aorta. Postsurgical change right shoulder. Cardiac device noted. Postsurgical change vertebral column. Subs egmental changes at the right lung base. Limited inspiration. IMPRESSION: 1. Right basilar atelectasis favored over pneumonia correlate clinically.
== END | disposition home or self-care (01) ==
LOC: RADXRMAIN 15:56
PROVIDERS: ATTEND Internal Medicine
DX: J18.9 Pneumonia, unspecified organism (principal); R07.9 Chest pain, unspecified
CPT/HCPCS: 71046

== ENCOUNTER → 2018-11-05 | Outpatient (CLI) | payer MEDICARE, BC ==
[2018-11-05 16:50] LABS: C Reactive Protein <0.4 mg/dL (0.0-0.8); Cholesterol 132 mg/dL (0-200); Creatine Kinase 34 U/L (26-186); LDL Cholesterol,Calculated 64.6 mg/dL (0.0-131.0)
== END | disposition home or self-care (01) ==
LOC: LABWHC1 10:09
PROVIDERS: ATTEND Internal Medicine
DX: E78.5 Hyperlipidemia, unspecified (principal); E55.9 Vitamin D deficiency, unspecified
CPT/HCPCS: 36415; 80061; 82306; 82550; 85652; 86140

== ENCOUNTER → 2019-02-24 | Outpatient (CLI) | payer MEDICARE, BC ==
--- NOTE | 2019-02-24 11:53 | MM ---
Reason for exam: additional evaluation requested from abnormal screening. Last mammogram was performed less than 1 month ago. History: Patient is postmenopausal. Physical Findings: Nurse did not find any significant physical abnormalities on exam. MG 3D Work Up W/Cad RT ML with magnification, CC with magnification, and ML view(s) were taken of the right breast. Prior study comparison: February 15, 2019, bilateral MG 3d screening mammo w/cad. November 06, 2017, bilateral MG 3d screening mammo w/cad. There are scattered fibroglandular densities. Finding: There are coarse heterogeneous, grouped/clustered calcifications in the 12 o'clock middle/posterior position of the right breast, may be associated with small lobular mass. New finding since November 06, 2017. These results were verbally communicated with the patient and result sheet given to the patient on 02/24/19. ASSESSMENT: Suspicious, BI-RAD 4 RECOMMENDATION: Stereotactic core biopsy of the right breast. Called with mammographic findings and has scheduled an appointment for the patient for 03/01/19 at 4:[address] Jacobo. PRELIMINARY REPORT CALLED AND FAXED TO DR. JACOBO ON 02/24/19.
== END | disposition home or self-care (01) ==
LOC: RADMAMWWP 10:24
PROVIDERS: ATTEND Internal Medicine
DX: R92.8 Other abnormal and inconclusive findings on diagnostic imaging of breast (principal)
CPT/HCPCS: 77065; G0279; 77061

== ENCOUNTER → 2019-03-24 | Day surgery (SDC) | payer MEDICARE, BC ==
[2019-03-24 07:30] VITALS: RESP 16; BMI 76.1
--- NOTE | 2019-03-24 08:33 | P.OP ---
Date of Procedure: 03/24/19 Preoperative Diagnosis: Mammographic abnormality right breast/microcalcifications Postoperative Diagnosis: Same Procedure(s) Performed: Right breast stereotactic core biopsy Anesthesia: local Surgeon: Joanne Prasad Estimated Blood Loss (ml): 1 Pathology: other (Breast tissue) Condition: stable Disposition: same day Indications for Procedure: Calcifications of concern right breast Operative Findings: Calcifications present in biopsy specimen Description of Procedure: Risks and benefits of the procedure were discussed with the patient. She wished to proceed with a stereotactic core biopsy of the right breast. The patient was taken to the stereotactic core room. She was positioned on the Lo-Rad table. A heater room helper film was obtained. The area of concern was identified. The lesion was targeted. The approach was CC from above. The lesion was in the 12 o'clock position of the right breast. The breast was prepped using alcohol. 20 mL of 1% lidocaine 10 with epinephrine were used to anesthetize the area of concern. A 9-gauge vacuum-assisted core biopsy needle was utilized to obtain the specimen. The needle was driven to the correct coordinates. Pre-fire films were obtained. The needle was noted to be in the correct location. The needle was fired and post fire films were obtained. The needle was noted to be in the correct location. 14 specimens were obtained and radiograph of the specimen revealed the calcifications of concern were present in the specimen. The area was lavaged. A secure merle top-poultry hatchery laborer was placed. The patient tolerated the procedure in stable condition. The specimen was sent to pathology. The patient will follow with Dr. Ohara next week.
[2019-03-24 09:20] VITALS: BP 103/66; PULSE 56; TEMP 98.1
--- NOTE | 2019-03-24 09:20 | MM ---
EXAMINATION TYPE: MG stereo VAD BX RT DATE OF EXAM: 03/24/2019 COMPARISON: Prior mammogram February 24, 2019 and older mammograms CLINICAL HISTORY: Suspicious group of calcifications right breast. TECHNIQUE: Stereotactic guided core biopsy of right breast with clip placement and follow-up diagnostic two-view mammogram. FINDINGS: The procedure of stereotactic guided core biopsy was explained to the patient. Benefits, alternatives, and risks were discussed. An informed consent was then obtained. [facility] pathway [facility] was chosen. Shortness pathway was cranial approach. I performed the localization, then surgeon, Dr. Prasad performed the remainder of the procedure. A vacuum assisted biopsy gun was used to obtain multiple core samples. The patient tolerated the procedure well without any immediate complication. The patient was kept in the radiology department for short stay after the procedure and then discharged home in stable condition. Targeted calcifications are identified in specimen mammogram. Post biopsy mammogram shows the clip to appear in satisfactory position relative to the targeted area of concern on the preprocedure images. IMPRESSION: SUCCESSFUL, UNCOMPLICATED STEREOTACTIC GUIDED CORE BIOPSY OF AREA OF CONCERN IN THE RIGHT BREAST, FULL PATHOLOGY RESULTS TO FOLLOW. Low index of suspicion noted at time of procedure. Pathology Results: Benign RIGHT BREAST, STEREOTACTIC CORE BIOPSY: Nodular scar with fat necrosis, calcifications and chronic inflammation in a background of fibrocystic changes. Negative for malignancy. Recommendation Follow up mammogram of the right breast in 6 months. BASIL
== END ==
LOC: RADMAMWWP 06:51
PROVIDERS: ATTEND Surgery
DX: N60.11 Diffuse cystic mastopathy of right breast (principal); N64.1 Fat necrosis of breast; R92.8 Other abnormal and inconclusive findings on diagnostic imaging of breast; R92.1 Mammographic calcification found on diagnostic imaging of breast
CPT/HCPCS: 88305; 19081; A4648; J2001

== ENCOUNTER → 2019-04-28 | Outpatient (CLI) | payer MEDICARE, BC ==
[2019-04-28 14:36] VITALS: BP 105/66; PULSE 66; RESP 18; TEMP 97.8; BMI 34.0
--- NOTE | 2019-04-28 15:01 | P.GSHP ---
History of Present Illness H&P Date: 04/28/19 Chief Complaint: sterobiopsy of the right breast Albina is a 79-year-old female who had a bilateral mammogram performed on . This revealed some increasing calcifications in the upper outer quadrant of the right breast. She then had [place] [address]. These were considered suspicious and she underwent a stereotactic core biopsy of the right breast on 8818. No lesions of concern were described in the left breast. Stereotactic core biopsy results revealed nodular scar with fat necrosis, calcifications and chronic inflammation in the background of fibrocystic changes. This was negative for malignancy. The patient complains of pain in her neck at the time of the procedure. The pain has improved but is still having some discomfort. She does not complain of any shooting pain down her arms. The pain is in the midportion of her neck slightly to the right side. Not radiate anyplace. It has improved from the time of this procedure. Family History: mother: lung cancer father: lung cancer brother: lung cancer sister: leukemia Hormonal History: menarche: 14 1 [place], breast fed: yes, first born at 22 menopause: Partial hysterectomy at the age of 30, bleeding BCP:10 years hormones: vaginal cream for 2 years Past Surgical History: 1. Partial hysterectomy at the age of 30 2. Appendectomy 3. Cholecystectomy 4. Left knee replacement 5. 2 back surgeries 6. Right shoulder replacement Medical history: 1. Arthritis 2. Rapid heart rate 3. leaky heart valve 4. Pacemaker left chest wall Social History: smoke:none alcohol: occasional drugs: none - Constitutional Constitutional: Denies chills, Denies fever - EENT Eyes: denies blurred vision, denies pain Ears: bilateral: decreased hearing (bilateral hearing aids), deny: tinnitus Ears, nose, mouth and throat: Reports nasal discharge, Reports sore throat, Denies headache - Breasts Breasts: bilateral: as per HPI - Cardiovascular Comment: two leaking heart valves Cardiovascular: Reports chest pain, Reports shortness of breath - Respiratory Respiratory: Denies cough, Denies 7 - Gastrointestinal Comment: IBS Gastrointestinal: Denies abdominal pain, Denies diarrhea, Denies nausea, Denies vomiting - Genitourinary (Female) Genitourinary: Denies dysuria, Denies hematuria - Menstruation Menstruation: Reports post hysterectomy - Musculoskeletal Comment: arthritis - Integumentary Integumentary: Denies pruritus, Denies rash - Neurological Neurological: Denies numbness, Denies weakness - Psychiatric Psychiatric: Denies anxiety, Denies depression - Endocrine Endocrine: Reports fatigue, Denies weight change - Allergic/Immunologic Allergic/Immunologic: Reports as per HPI, Reports seasonal allergies Past Medical History Past Medical History: Osteoarthritis (OA), Syncope Additional Past Medical History / Comment(s): Tx for C-Diff in May 2017. IBS, hx of arrythmia. steroid injection May 2017. "leaky heart valves" History of Any Multi-Drug Resistant Organisms: C-DIFF Date of last positivie culture/infection: May 2017 MDRO Source:: stool Past Surgical History: Appendectomy, Back Surgery, Cholecystectomy, Ear Surgery, Hysterectomy, Joint Replacement, Orthopedic Surgery, Pacemaker Additional Past Surgical History / Comment(s): rotator cuff surguery. laser eye surgery. back-2 rods and screws. lt total knee Past Anesthesia/Blood Transfusion Reactions: Motion Sickness, Postoperative Nausea & Vomiting (PONV) Type of Cardiac Device: Permanent Pacemaker Device Placement Date:: 2018 Past Psychological History: Anxiety Smoking Status: Never smoker Past Alcohol Use History: Occasional Past Drug Use History: None Reported - Past Family History Mother Family Medical History: Cancer Additional Family Medical History / Comment(s): lung Brother(s) Family Medical History: Cancer Additional Family Medical History / Comment(s): lung Father Family Medical History: Cancer Additional Family Medical History / Comment(s): lung Medications and Allergies Home Medications Medication Instructions Recorded Confirmed Type B Infantis/B Ani/B Ryan/B Bifid 1 tab PO DAILY 01/13/14 04/28/19 History [Probiotic 4X Caplet] Vit A,C & E/Lutein/Minerals 2 tab PO DAILY 01/13/14 04/28/19 History [Ocuvite with Lutein Tablet] Dicyclomine [Bentyl] 10 mg PO QID 11/09/16 04/28/19 History LORazepam [Ativan] 0.5 mg PO HS 11/09/16 04/28/19 History Metoprolol Tartrate [Lopressor] 25 mg PO DAILY 11/09/16 04/28/19 History Propylene Glycol/Peg 400 [Systane 1 drop BOTH EYES BID 06/19/17 04/28/19 History Ultra 0.4-0.3% Eye Drp] Allergies Allergy/AdvReac Type Severity Reaction Status Date / Time adhesive Allergy Rash/Hives Verified 04/28/19 14:31 chlorhexidine gluconate Allergy Itching Verified 04/28/19 14:31 [From Hibiclens] ciprofloxacin [From Cipro] Allergy Rash/Hives Verified 04/28/19 14:31 ciprofloxacin HCl Allergy Rash/Hives Verified 04/28/19 14:31 [From Cipro] fentanyl [From Duragesic] Allergy Itching Verified 04/28/19 14:31 fluocinonide Allergy Rash/Hives Verified 04/28/19 14:31 isopropyl alcohol Allergy Itching Verified 04/28/19 14:31 [From Hibiclens] nitrofurantoin Allergy Unknown Verified 04/28/19 14:31 [From Macrobid] nitrofurantoin Allergy Unknown Verified 04/28/19 14:31 macrocrystalline [From Macrobid] Penicillins Allergy headache Verified 04/28/19 14:31 povidone-iodine Allergy Rash/Hives Verified 04/28/19 14:31 [From Betadine] soap [From Betadine] Allergy Rash/Hives Verified 04/28/19 14:31 streptomycin [Streptomycin] Allergy Unknown Verified 04/28/19 14:31 Sulfa (Sulfonamide Allergy Rash/Hives Verified 04/28/19 14:31 Antibiotics) aspirin AdvReac Nausea & Verified 04/28/19 14:31 Vomiting cephalexin [From Keflex] AdvReac Nausea & Verified 04/28/19 14:31 Vomiting codeine AdvReac headache Verified 04/28/19 14:31 methylprednisolone AdvReac Nausea & Verified 04/28/19 14:31 [From Medrol] Vomiting metronidazole AdvReac Unknown Verified 04/28/19 14:31 NSAIDS (Non-Steroidal AdvReac Nausea & Verified 04/28/19 14:31 Anti-Inflamma Vomiting tape Allergy "paper Uncoded 04/28/19 14:31 tape is ok" Surgical - Exam Vital Signs Temp Pulse Resp BP Pulse Ox 97.8 F 66 18 105/66 98 04/28/19 14:33 04/28/19 14:33 04/28/19 14:33 04/28/19 14:33 04/28/19 14:33 BMI 34.1 - General well developed, well nourished, no distress - Eyes normal ocular movement - ENT no hearing loss, no congestion - Neck trachea midline - Respiratory normal respiratory effort, clear to auscultation - Cardiovascular Rhythm: regular Heart Sounds: normal: S1, S2 - Abdomen Abdomen: soft, non tender, no guarding, no rigid, no rebound - Integumentary normal turgor - Neurologic no disoriented, no combative - Musculoskeletal kyphosis - Psychiatric oriented to time, oriented to person, oriented to place, speech is normal, memory intact breast exam: bra: 42C Right breast: Slightly smaller than left breast, multiple positional exam fibrocystic changes, evidence of a tattoo on the right breast at 12:00 Right axilla: No adenopathy of concern No evidence of any infection or hematoma related to core biopsy in the right breast Left breast: Multiple positional exam fibrocystic changes, no dominant masses or nodules of concern, pacemaker left chest wall Left axilla: No adenopathy of concern Results Mammogram results reviewed Assessment and Plan Assessment: Impression: 1. Arthritis 2. Rapid heart rate 3. leaky heart valve 4. Pacemaker left chest wall 5. Fibrocystic breast changes 6. Asymmetry of the breast 7. Fat necrosis right breast 8. Family history of lung cancer Plan: 1. Right breast repeat mammogram in 6 months with physician exam 2. Medical management of medical conditions 3. Patient to follow up if she has any questions or concerns CC: Dr. Jacobo
== END | disposition home or self-care (01) ==
LOC: WWCWWP 14:18
PROVIDERS: ATTEND Surgery
DX: Z53.9 Procedure and treatment not carried out, unspecified reason (principal)

== ENCOUNTER → 2019-06-23 | Outpatient (CLI) | payer MEDICARE, BC ==
--- NOTE | 2019-06-23 14:15 | XR ---
Thoracic spine HISTORY: M 81.0, pain Frontal and lateral views of the thoracic spine submitted on 3 images, correlation lumbar CT dated Postop changes are noted in the lumbar spine. Multilevel spondylosis noted in the thoracic spine. Bon e mineralization is reduced. Thoracic vertebral bodies show preserved height and alignment with excep tion of some mild likely stable anterior wedging at T12 level. Loss of disc height present at the int ervertebral levels with multilevel vacuum phenomenon, T12-L1, T11-12. The aorta is dense. There is a generator in the left pectoral region, leads are present in the right atrium and ventricle. Degenerat jose a disc changes are present in the cervical spine. Postop change noted to the shoulder. IMPRESSION: No acute fracture or subluxation. Osteopenia, degenerative disc disease.
--- NOTE | 2019-06-23 14:18 | XR ---
Cervical spine HISTORY: M 81.0, pain 5 views of the cervical spine and correlated to prior cervical spine dated 10/15/2013 There is multilevel spondylosis. Loss of disc height is present at the intervertebral levels. Cervica l vertebral bodies show preserved height and alignment. Bone mineralization is reduced. There is mult ilevel facet arthropathy. Multilevel foraminal encroachment noted especially at C4-5, C5-6 and C6-7 b ilaterally. Suspected incomplete ring at C1 is likely midline fusion anomaly. IMPRESSION: Degenerative disc disease, facet arthropathy, osteopenia.
== END | disposition home or self-care (01) ==
LOC: RADXRMAIN 12:02
PROVIDERS: ATTEND Internal Medicine
DX: M50.30 Other cervical disc degeneration, unspecified cervical region (principal); M51.34 Other intervertebral disc degeneration, thoracic region; M46.92 Unspecified inflammatory spondylopathy, cervical region; M81.0 Age-related osteoporosis without current pathological fracture
CPT/HCPCS: 72050; 72072

== ENCOUNTER 2019-07-04 18:41 | Emergency (ER) | payer MEDICARE, BC ==
[2019-07-04 18:52] VITALS: RESP 18; TEMP 97.3
--- NOTE | 2019-07-04 19:38 | CT ---
EXAMINATION TYPE: CT brain steve buckner DATE OF EXAM: 07/04/2019 COMPARISON: 08/05/1710 HISTORY: fell tonight and landed on the rt side of her face. swelling/bruising rt lateral orbit CT DLP: 1147.6 (orbits scanned with brain) mGycm Unenhanced CT of the brain was performed. The ventricles, basal cisterns and sulci overlying the cerebral convexities demonstrate mild enlargem ent. There is no evidence for intracranial hemorrhage or sulcal effacement. There is decreased attenuatio n about the periventricular white matter and deep white matter of both cerebral hemispheres, compatib le with chronic small vessel ischemia. No mass effects are seen. If symptoms persist consider MRI. Osseous calvarium is intact. IMPRESSION: 1. Age related atrophic and chronic small vessel ischemic change without acute intracranial process seen at this time. CT Cervical Spine: Unenhanced CT of the cervical spine was performed with bone and soft tissue window settings submitted . Coronal and sagittal reconstruction is obtained. There is normal alignment and prevertebral soft tissues. No evidence for acute cervical fracture . Scattered degenerative disc disease and spondylosis. Biapical scarring. IMPRESSION: 1. No evidence for acute fracture or subluxation of the cervical spine.
--- NOTE | 2019-07-04 19:41 | CT ---
EXAMINATION TYPE: CT orbits wo con DATE OF EXAM: 07/04/2019 COMPARISON: None HISTORY: fell tonight and landed on the rt side of her face. swelling/bruising rt lateral orbit Unenhanced CT of the facial bones was performed in the axial and coronal planes. Bone and soft tissu e window settings are submitted. Right periorbital soft tissue swelling noted. I do not see evidence for displaced facial bone fracture or depressed facial bone fracture. The globes are intact. Paranasal sinuses are well-aerated. IMPRESSION: 1. No evidence for depressed or displaced facial bone fracture.
--- NOTE | 2019-07-04 19:42 | XR ---
EXAMINATION TYPE: XR wrist complete LT DATE OF EXAM: 07/04/2019 CLINICAL HISTORY: pain TECHNIQUE: Frontal, lateral and oblique images of the left wrist are obtained. COMPARISON: None. FINDINGS: There is no acute fracture/dislocation evident. The joint spaces appear within normal khan its. The overlying soft tissue appears unremarkable. IMPRESSION: There is no acute fracture or dislocation seen. ICD 10 NO FRACTURE, INITIAL EVALUATION
[2019-07-04 19:57] VITALS: BP 129/65; PULSE 61
--- NOTE | 2019-07-04 20:00 | ED ---
General Adult HPI - General Chief complaint: Fall Stated complaint: fall, head injury, left wrist injury Time Seen by Provider: 07/04/19 18:53 Source: patient, RN notes reviewed, old records reviewed Mode of arrival: ambulatory Limitations: no limitations - History of Present Illness Initial comments: 79-year-old female patient presents to ED with chief complaint of slip and fall. Patient reports that she was walking up to her building, slipped, falling forward, kidding the corner of her right orbital region on a step. Patient denies any loss of consciousness. Patient does report that she has some bruising around this after orbital region. Patient also complains of some left wrist pain. Denies any other complaints. Systemic: Pt denies fatigue, fever/chills, rash. Pt denies weakness, night sweats, weight loss. Neuro: Pt denies headache, visual disturbances, syncope or pre-syncope. HEENT: Pt denies ocular discharge or irritation, otalgia, rhinorrhea, pharyngitis or notable lymphadenopathy. Cardiopulmonary: Pt denies chest pain, SOB, heart palpitations, dyspnea on exertion. Abdominal/GI: Pt denies abdominal pain, n/v/d. : Pt denies dysuria, burning w/ urination, frequency/urgency. Denies new onset urinary or bowel incontinence. MSK: Pt denies myalgia, loss of strength or function in extremities. Neuro: Pt denies new onset weakness, paresthesias. - Related Data Home Medications Medication Instructions Recorded Confirmed B Infantis/B Ani/B Ryan/B Bifid 1 tab PO DAILY 01/13/14 04/28/19 [Probiotic 4X Caplet] Vit A,C & E/Lutein/Minerals 2 tab PO DAILY 01/13/14 04/28/19 [Ocuvite with Lutein Tablet] Dicyclomine [Bentyl] 10 mg PO QID 11/09/16 04/28/19 LORazepam [Ativan] 0.5 mg PO HS 11/09/16 04/28/19 Metoprolol Tartrate [Lopressor] 25 mg PO DAILY 11/09/16 04/28/19 Propylene Glycol/Peg 400 [Systane 1 drop BOTH EYES BID 06/19/17 04/28/19 Ultra 0.4-0.3% Eye Drp] Allergies Allergy/AdvReac Type Severity Reaction Status Date / Time adhesive Allergy Rash/Hives Verified 04/28/19 14:31 chlorhexidine gluconate Allergy Itching Verified 04/28/19 14:31 [From Hibiclens] ciprofloxacin [From Cipro] Allergy Rash/Hives Verified 04/28/19 14:31 ciprofloxacin HCl Allergy Rash/Hives Verified 04/28/19 14:31 [From Cipro] fentanyl [From Duragesic] Allergy Itching Verified 04/28/19 14:31 fluocinonide Allergy Rash/Hives Verified 04/28/19 14:31 isopropyl alcohol Allergy Itching Verified 04/28/19 14:31 [From Hibiclens] nitrofurantoin Allergy Unknown Verified 04/28/19 14:31 [From Macrobid] nitrofurantoin Allergy Unknown Verified 04/28/19 14:31 macrocrystalline [From Macrobid] Penicillins Allergy headache Verified 04/28/19 14:31 povidone-iodine Allergy Rash/Hives Verified 04/28/19 14:31 [From Betadine] soap [From Betadine] Allergy Rash/Hives Verified 04/28/19 14:31 streptomycin [Streptomycin] Allergy Unknown Verified 04/28/19 14:31 Sulfa (Sulfonamide Allergy Rash/Hives Verified 04/28/19 14:31 Antibiotics) aspirin AdvReac Nausea & Verified 04/28/19 14:31 Vomiting cephalexin [From Keflex] AdvReac Nausea & Verified 04/28/19 14:31 Vomiting codeine AdvReac headache Verified 04/28/19 14:31 methylprednisolone AdvReac Nausea & Verified 04/28/19 14:31 [From Medrol] Vomiting metronidazole AdvReac Unknown Verified 04/28/19 14:31 NSAIDS (Non-Steroidal AdvReac Nausea & Verified 04/28/19 14:31 Anti-Inflamma Vomiting tape Allergy "paper Uncoded 04/28/19 14:31 tape is ok" Review of Systems ROS Statement: Those systems with pertinent positive or pertinent negative responses have been documented in the HPI. ROS Other: All systems not noted in ROS Statement are negative. Past Medical History Past Medical History: Osteoarthritis (OA), Syncope Additional Past Medical History / Comment(s): Tx for C-Diff in May 2017. IBS, hx of arrythmia. steroid injection May 2017. "leaky heart valves" History of Any Multi-Drug Resistant Organisms: C-DIFF Date of last positivie culture/infection: May 2017 MDRO Source:: stool Past Surgical History: Appendectomy, Back Surgery, Cholecystectomy, Ear Surgery, Hysterectomy, Joint Replacement, Orthopedic Surgery, Pacemaker Additional Past Surgical History / Comment(s): rotator cuff surguery. laser eye surgery. back-2 rods and screws. lt total knee Past Anesthesia/Blood Transfusion Reactions: Motion Sickness, Postoperative Nausea & Vomiting (PONV) Type of Cardiac Device: Permanent Pacemaker Device Placement Date:: 2018 Past Psychological History: Anxiety Smoking Status: Never smoker Past Alcohol Use History: Occasional Past Drug Use History: None Reported - Past Family History Mother Family Medical History: Cancer Additional Family Medical History / Comment(s): lung Brother(s) Family Medical History: Cancer Additional Family Medical History / Comment(s): lung Father Family Medical History: Cancer Additional Family Medical History / Comment(s): lung General Exam - General Exam Comments Initial Comments: Constitutional: NAD, AOX3, Pt has pleasant affect. HEENT: NC/AT, trachea midline, neck supple, no lymphadenopathy. Posterior ph arynx non erythematous, without exudates. External ears appear normal, without discharge. Mucous membranes moist. Eyes PERRLA, EOM intact. There is no scleral icterus. No pallor noted. Cardiopulmonary: RRR, no murmurs, rubs or gallops, no JVD noted. Lungs CTAB in anterior and posterior zelaya. No peripheral edema. Abdominal exam: Abdomen soft and non-distended. Abdomen non-tender to palpation in all 4 quadrants. Bowel sounds active in LLQ. No hepatosplenomegaly. No ecchymosis Neuro: CN II-XII grossly intact. No nuchal rigidity. No raccon eyes, no estrella sign, no hemotympanum. No cervical spinal tenderness. MSK: No hematoma and ecchymoses noted that right lateral orbital region. Nonspecific differential. Left wrist nontender to palpation, neurovascularly intact. No posterior calf tenderness bilaterally, homans sign negative bilaterally. Posterior tibialis and radial pulse +2 bilaterally. Sensation intact in upper and lower extremities. Full active ROM in upper and lower extremities, 5/5 stregnth. Limitations: no limitations Course Vital Signs 07/04/19 18:48 Temperature 97.3 F L Pulse Rate 61 Respiratory 18 Rate Blood Pressure 129/65 O2 Sat by Pulse 96 Oximetry Medical Decision Making - Medical Decision Making 79-year-old female patient presents to ED chief complaint fall from standing, hitting her right lateral orbital region on a step. Patient authenticated stable, afebrile. Patient has a small hematoma nonsequential this region. Extraocular movements are intact. Imaging was obtained including CT orbits, brain and C-spine without contrast is negative for acute process. Patient also complains of some left wrist pain, this area was nontender to palpation. No snuffbox tenderness. Plain films are negative. This will discharge with follow-up with primary care and will try to ER if condition worsens. Case discussed with Dr. Sanchez. Disposition Clinical Impression: Fall, Wrist sprain Disposition: HOME SELF-CARE Condition: Stable Instructions (If sedation given, give patient instructions): Fall Prevention (ED) Additional Instructions: Follow up with primary care provider, return to ER if condition worsens. Is patient prescribed a controlled substance at d/c from ED?: No Referrals: Wilbur Jacobo MD [Primary Care Provider] - 1-2 days
== END 2019-07-04 20:13 | disposition home or self-care (01) ==
LOC: EC 18:41
DX: S63.502A Unspecified sprain of left wrist, initial encounter (principal); S05.11XA Contusion of eyeball and orbital tissues, right eye, initial encounter; M19.90 Unspecified osteoarthritis, unspecified site; F41.9 Anxiety disorder, unspecified; Z96.698 Presence of other orthopedic joint implants; Z95.0 Presence of cardiac pacemaker; Z79.899 Other long term (current) drug therapy; Z91.048 Other nonmedicinal substance allergy status; Z88.8 Allergy status to other drugs, medicaments and biological substances; Z88.1 Allergy status to other antibiotic agents; Z88.5 Allergy status to narcotic agent; Z88.0 Allergy status to penicillin; Z88.2 Allergy status to sulfonamides; Z88.6 Allergy status to analgesic agent; W10.9XXA Fall (on) (from) unspecified stairs and steps, initial encounter; Y93.01 Activity, walking, marching and hiking
CPT/HCPCS: 70450; 70480; 72125; 99284

== ENCOUNTER → 2019-07-07 | Outpatient (CLI) | payer MEDICARE, BC ==
--- NOTE | 2019-07-07 15:54 | XR ---
Left RIBS HISTORY: Trauma, pain For views of the left RIBS Comparison chest x-ray 10/04/2018 Generator in the left pectoral region, leads in the right atrium and ventricle are again noted. Posto p changes are noted to the lumbar spine. No evident pneumothorax or pleural effusion. Bone mineraliza tion is reduced. Lower ribs are not well seen. Spondylosis noted in the thoracic spine. IMPRESSION: No evident displaced rib fracture. Bone scan could be performed for increased sensitivity as indicated.
== END | disposition home or self-care (01) ==
LOC: RADXRMAIN 15:05
PROVIDERS: ATTEND Internal Medicine
DX: R07.81 Pleurodynia (principal); M19.90 Unspecified osteoarthritis, unspecified site

== ENCOUNTER → 2019-08-18 | Outpatient (CLI) | payer BC, MEDICARE ==
[2019-08-18 13:50] LABS: Basophils % (A) 1 %; Eosinophils # (A) 0.3 k/uL (0-0.7); Eosinophils % (A) 5 %; HCT 39.3 % (34.0-46.0); HGB 13.4 gm/dL (11.4-16.0); Lymphocytes # (A) 1.3 k/uL (1.0-4.8); Lymphocytes % (A) 25 %; MCH 30.7 pg (25.0-35.0); MCHC 34.1 g/dL (31.0-37.0); Monocytes # (A) 0.2 k/uL (0-1.0); Monocytes % (A) 5 %; Neutrophils # (A) 3.4 k/uL (1.3-7.7); Neutrophils % (A) 62 %; Platelet Count 211 k/uL (150-450); RBC 4.36 m/uL (3.80-5.40); RDW 13.6 % (11.5-15.5); WBC 5.4 k/uL (3.8-10.6)
[2019-08-18 18:32] LABS: ALT 19 U/L (8-44); AST 23 U/L (13-35); African American GFR (CKD) 81.3 (60.0-200.0); Alkaline Phosphatase 84 U/L (41-126); Bilirubin, Conjugated <0.20 mg/dL (0.20-0.40); Calcium 9.1 mg/dL (8.7-10.3); Carbon Dioxide 27.8 mmol/L (21.6-31.8); Chloride 106 mmol/L (96-109); Glucose 81 mg/dL (70-110); Magnesium 1.7 mg/dL (1.5-2.4); Non-African American GFR(CKD) 70.1 (60.0-200.0); Phosphorus 4.3 mg/dL (2.4-5.1); Potassium 4.2 mmol/L (3.5-5.5); Sodium 140 mmol/L (135-145); Total Bilirubin 0.5 mg/dL (0.3-1.2); Total Protein 6.2 g/dL (6.2-8.2)
== END | disposition home or self-care (01) ==
LOC: LABWHC1 12:25
PROVIDERS: ATTEND Internal Medicine
DX: E03.9 Hypothyroidism, unspecified (principal); E86.0 Dehydration; R19.7 Diarrhea, unspecified
CPT/HCPCS: 36415; 80053; 82248; 83630; 83735; 84100; 84439; 84443; 85025; 87338

== ENCOUNTER → 2019-10-07 | Outpatient (CLI) | payer MEDICARE ==
[2019-10-07 10:06] LABS: Basophils % (A) 1 %; Eosinophils # (A) 0.2 k/uL (0-0.7); Eosinophils % (A) 4 %; HCT 41.6 % (34.0-46.0); HGB 13.8 gm/dL (11.4-16.0); Lymphocytes # (A) 1.1 k/uL (1.0-4.8); Lymphocytes % (A) 22 %; MCH 29.6 pg (25.0-35.0); MCHC 33.2 g/dL (31.0-37.0); MCV 89.1 fL (80.0-100.0); Mean Platelet Volume 6.8; Monocytes # (A) 0.3 k/uL (0-1.0); Monocytes % (A) 5 %; Neutrophils # (A) 3.4 k/uL (1.3-7.7); Neutrophils % (A) 65 %; Platelet Count 183 k/uL (150-450); RBC 4.67 m/uL (3.80-5.40); RDW 13.4 % (11.5-15.5); WBC 5.1 k/uL (3.8-10.6)
[2019-10-07 12:08] LABS: Erythrocyte Sedimentation Rate 13 mm/hr (0-20)
[2019-10-07 16:59] LABS: ALT 20 U/L (8-44); AST 26 U/L (13-35); African American GFR (CKD) 81.3 (60.0-200.0); Albumin/Globulin Ratio 2.25 (1.60-3.17); Alkaline Phosphatase 89 U/L (41-126); C Reactive Protein <0.4 mg/dL (0.0-0.8); Calcium 9.2 mg/dL (8.7-10.3); Carbon Dioxide 24.7 mmol/L (21.6-31.8); Chloride 108 mmol/L (96-109); Chol/HDL Ratio 2.88; Cholesterol 161 mg/dL (0-200); Glucose 101 mg/dL (70-110); Non-African American GFR(CKD) 70.1 (60.0-200.0); Potassium 4.6 mmol/L (3.5-5.5); Sodium 143 mmol/L (135-145); Total Bilirubin 0.5 mg/dL (0.3-1.2); Total Protein 6.5 g/dL (6.2-8.2)
[2019-10-07 17:00] LABS: Creatine Kinase 61 U/L (26-186); Uric Acid 7.1 mg/dL (2.9-7.7)
== END | disposition home or self-care (01) ==
LOC: LABWHC1 09:25
PROVIDERS: ATTEND Internal Medicine
DX: Z00.00 Encounter for general adult medical examination without abnormal findings (principal); M81.0 Age-related osteoporosis without current pathological fracture; K58.9 Irritable bowel syndrome, unspecified; I10 Essential (primary) hypertension; E78.5 Hyperlipidemia, unspecified; D64.9 Anemia, unspecified; M10.9 Gout, unspecified; E55.9 Vitamin D deficiency, unspecified
CPT/HCPCS: 36415; 80053; 80061; 82272; 82306; 82550; 84443; 84550; 85025; 85652; 86140

== ENCOUNTER → 2020-03-26 | Outpatient (CLI) | payer MEDICARE ==
[2020-03-26 12:41] LABS: Basophils % (A) 1 %; Eosinophils # (A) 0.3 k/uL (0-0.7); Eosinophils % (A) 6 %; HGB 12.5 gm/dL (11.4-16.0); Lymphocytes # (A) 1.1 k/uL (1.0-4.8); Lymphocytes % (A) 22 %; MCHC 32.8 g/dL (31.0-37.0); MCV 91.2 fL (80.0-100.0); Mean Platelet Volume 6.9; Monocytes # (A) 0.2 k/uL (0-1.0); Monocytes % (A) 4 %; Neutrophils # (A) 3.4 k/uL (1.3-7.7); Neutrophils % (A) 66 %; Platelet Count 187 k/uL (150-450); RBC 4.17 m/uL (3.80-5.40); RDW 13.8 % (11.5-15.5); WBC 5.1 k/uL (3.8-10.6)
[2020-03-26 19:49] LABS: African American GFR (CKD) 80.7 (60.0-200.0); C Reactive Protein <0.4 mg/dL (0.0-0.8); Calcium 9.6 mg/dL (8.7-10.3); Carbon Dioxide 25.4 mmol/L (21.6-31.8); Chloride 109 mmol/L (96-109); Glucose 84 mg/dL (70-110); Non-African American GFR(CKD) 69.6 (60.0-200.0); Potassium 4.4 mmol/L (3.5-5.5); Rheumatoid Factor, Qnt 7 IU/mL (0-15); Sodium 141 mmol/L (135-145)
[2020-03-26 19:51] LABS: Erythrocyte Sedimentation Rate 13 mm/Hr (0-30)
[2020-03-26 21:28] LABS: Cyclic Citrull Pep IgG Unit <0.5 U/mL; Cyclic Citrullinated Pep IgG NEGATIVE (NEGATIVE); DNA Double-Stranded NEGATIVE (NEGATIVE)
== END | disposition home or self-care (01) ==
LOC: LABWHC1 11:15
PROVIDERS: ATTEND Internal Medicine
DX: M81.0 Age-related osteoporosis without current pathological fracture (principal)
CPT/HCPCS: 36415; 80048; 85025; 85652; 86038; 86140; 86200; 86225; 86431

== ENCOUNTER → 2020-03-29 | Outpatient (CLI) | payer MEDICARE ==
--- NOTE | 2020-03-29 18:05 | XR ---
EXAMINATION TYPE: XR chest 2V DATE OF EXAM: 03/29/2020 CLINICAL HISTORY: Shortness of breath TECHNIQUE: Frontal and lateral views of the chest are obtained. COMPARISON: 10/04/2018 chest radiograph FINDINGS: Left-sided dual-chamber pacemaker. Incompletely visualized lumbar spine fixation hardware and right shoulder arthroplasty hardware. The cardiomediastinal silhouette is within normal limits fo r size. Pulmonary vasculature is normal. There is no focal air space opacity, pleural effusion, or pn eumothorax seen. There is compression deformity of the vertebral body just above the lumbar fixation hardware which is unchanged versus 2019 comparison. IMPRESSION: No acute cardiopulmonary process.
== END | disposition home or self-care (01) ==
LOC: LABWHC1 11:58
PROVIDERS: ATTEND Internal Medicine
DX: R06.09 Other forms of dyspnea (principal); R06.02 Shortness of breath; Z95.0 Presence of cardiac pacemaker
CPT/HCPCS: 36415; 71046; 83880

== ENCOUNTER → 2020-08-20 | Outpatient (CLI) | payer MEDICARE ==
--- NOTE | 2020-08-22 14:47 | MM ---
Reason for exam: screening (asymptomatic). Last mammogram was performed 1 year and 6 months ago. History: Patient is postmenopausal. Benign MG stereo VAD BX RT of the right breast, March 24, 2019. Physical Findings: A clinical breast exam by your physician is recommended on an annual basis and results should be correlated with mammographic findings. MG 3D Screening Mammo W/Cad Bilateral CC and MLO view(s) were taken. Prior study comparison: February 24, 2019, right breast MG 3d work up w/cad RT. February 15, 2019, bilateral MG 3d screening mammo w/cad. November 06, 2017, bilateral MG 3d screening mammo w/cad. September 30, 2016, bilateral MG 3d screening mammo w/cad. There are scattered fibroglandular densities. There is new associated nodularity 12-1 o'clock right breast, likely biopsy site change, 6 month follow up recommended. Generator device over the left pectoralis. A few regional benign appearing round and punctate calcifications on the right. Otherwise, no significant change. ASSESSMENT: Probably benign, BI-RAD 3 RECOMMENDATION: Follow-up diagnostic mammogram of the right breast in 6 months.
== END | disposition home or self-care (01) ==
LOC: RADMAMWWP 10:23
PROVIDERS: ATTEND Internal Medicine
DX: Z12.31 Encounter for screening mammogram for malignant neoplasm of breast (principal); Z90.12 Acquired absence of left breast and nipple
CPT/HCPCS: 77063; 77067

== ENCOUNTER → 2020-10-08 | Outpatient (CLI) | payer MEDICARE ==
--- NOTE | 2020-10-08 15:26 | XR ---
EXAMINATION TYPE: XR chest 2V DATE OF EXAM: 10/08/2020 COMPARISON: Chest x-ray 03/29/2020 HISTORY: Shortness of breath TECHNIQUE: Frontal and lateral views of the chest are obtained. FINDINGS: Postop changes are noted status post fusion as on prior exam at the thoracolumbar spine, t here is a slight kyphosis. Bone mineralization is reduced. Is multilevel spondylosis. There is a gene rator present in the left pectoral region, there are leads in the right atrium and ventricle. Postop change noted the right shoulder. No evident airspace disease, pneumothorax, or pleural effusion. Ther e is eventration of right hemidiaphragm. Cardiac mediastinal silhouette is stable. Aorta shows dense appearance. IMPRESSION: Stable exam, no acute cardiopulmonary disease. Postop changes.
== END | disposition home or self-care (01) ==
LOC: RADXRMAIN 11:41
PROVIDERS: ATTEND Internal Medicine
DX: R06.02 Shortness of breath (principal); Z98.890 Other specified postprocedural states
CPT/HCPCS: 71046

== ENCOUNTER → 2020-12-31 | Outpatient (CLI) | payer MEDICARE ==
[2020-12-31 20:24] LABS: Basophils # (A) 0.02 X 10*3/uL (0.00-0.10); Basophils % (A) 0.4 %; Eosinophils # (A) 0.24 X 10*3/uL (0.04-0.35); Eosinophils % (A) 4.6 %; HCT 37.6 % (37.2-46.3); HGB 12.3 g/dL (12.0-15.0); Lymphocytes # (A) 1.15 X 10*3/uL (0.90-5.00); MCH 29.9 pg (27.0-32.0); MCHC 32.7 g/dL (32.0-37.0); MCV 91.5 fL (80.0-97.0); Mean Platelet Volume 9.5 fL (9.5-12.2); Monocytes # (A) 0.36 X 10*3/uL (0.20-1.00); Monocytes % (A) 6.9 %; Neutrophils # (A) 3.45 X 10*3/uL (1.80-7.70); Neutrophils % (A) 65.9 %; Platelet Count 203 X 10*3/uL (140-440); RBC 4.11 X 10*6/uL (4.10-5.20); WBC 5.23 X 10*3/uL (4.50-10.00)
[2020-12-31 21:48] LABS: Erythrocyte Sedimentation Rate 27 mm/Hr (0-30)
[2020-12-31 21:49] LABS: ALT 22 U/L (8-44); AST 26 U/L (13-35); Albumin/Globulin Ratio 1.58 (1.60-3.17); Alkaline Phosphatase 85 U/L (41-126); BUN/Creat Ratio 24.44 Ratio (12.00-20.00); C Reactive Protein <0.4 mg/dL (0.0-0.8); Calcium 9.1 mg/dL (8.7-10.3); Carbon Dioxide 26.9 mmol/L (21.6-31.8); Chloride 106 mmol/L (96-109); Chol/HDL Ratio 3.04; Cholesterol 161 mg/dL (0-200); Creatine Kinase 46 U/L (26-186); Globulin 2.6 g/dL (1.6-3.3); Glucose 88 mg/dL (70-110); LDL Cholesterol,Calculated 93.8 mg/dL (0.0-131.0); Magnesium 1.8 mg/dL (1.5-2.4); Non-African American GFR(CKD) 60.4 (60.0-200.0); Phosphorus 4.2 mg/dL (2.4-5.1); Potassium 5.1 mmol/L (3.5-5.5); Sodium 141 mmol/L (135-145); Total Bilirubin 0.5 mg/dL (0.2-1.2); Total Protein 6.7 g/dL (6.2-8.2)
== END | disposition home or self-care (01) ==
LOC: LABWHC1 10:25
PROVIDERS: ATTEND Internal Medicine
DX: Z00.00 Encounter for general adult medical examination without abnormal findings (principal); I10 Essential (primary) hypertension; E03.9 Hypothyroidism, unspecified; E55.9 Vitamin D deficiency, unspecified; E78.5 Hyperlipidemia, unspecified; M10.9 Gout, unspecified
CPT/HCPCS: 36415; 80053; 80061; 82306; 82550; 83735; 84100; 84443; 85025; 85652; 86140

== ENCOUNTER → 2021-03-14 | Outpatient (CLI) | payer MEDICARE ==
[2021-03-15 02:57] LABS: African American GFR (CKD) 54.5 (60.0-200.0); Anion Gap 13.4 mmol/L (4.00-12.00); BUN/Creat Ratio 30.91 Ratio (12.00-20.00); Calcium 8.9 mg/dL (8.7-10.3); Carbon Dioxide 22.6 mmol/L (21.6-31.8); Potassium 4.4 mmol/L (3.5-5.5)
== END | disposition home or self-care (01) ==
LOC: LABWHC1 11:19
PROVIDERS: ATTEND Internal Medicine
DX: I50.9 Heart failure, unspecified (principal); Z95.0 Presence of cardiac pacemaker
CPT/HCPCS: 36415; 80048; 83880

== ENCOUNTER → 2021-06-03 | Outpatient (CLI) | payer MEDICARE ==
[2021-06-03 17:40] LABS: African American GFR (CKD) 59.7 (60.0-200.0); Anion Gap 12.1 mmol/L (4.00-12.00); BUN/Creat Ratio 27.06 Ratio (12.00-20.00); Blood Urea Nitrogen 27.6 mg/dL (9.0-27.0); Calcium 9.4 mg/dL (8.7-10.3); Carbon Dioxide 26.7 mmol/L (21.6-31.8); Non-African American GFR(CKD) 51.5 (60.0-200.0); Potassium 3.9 mmol/L (3.5-5.5)
== END | disposition home or self-care (01) ==
LOC: LABWHC1 11:28
PROVIDERS: ATTEND Internal Medicine
DX: E87.8 Other disorders of electrolyte and fluid balance, not elsewhere classified (principal)
CPT/HCPCS: 36415; 80048

== ENCOUNTER → 2021-10-16 | Outpatient (CLI) | payer MEDICARE ==
--- NOTE | 2021-10-16 12:41 | MM ---
Reason for exam: additional evaluation requested from prior study. Last mammogram was performed 1 year and 2 months ago. History: Patient is postmenopausal and history of other cancer. Benign MG stereo VAD BX RT of the right breast, March 24, 2019. Physical Findings: A clinical breast exam by your physician is recommended on an annual basis and results should be correlated with mammographic findings. MG 3D Diag Mammo W/Cad MIRIAN Bilateral CC and MLO view(s) were taken. Prior study comparison: August 20, 2020, bilateral MG 3d screening mammo w/cad. February 24, 2019, right breast MG 3d work up w/cad RT. There are scattered fibroglandular densities. Stable benign calcifications. Previous mammotome biopsy in the right breast. No significant new findings when compared with previous films. These results were verbally communicated with the patient and result sheet given to the patient on 10/16/21. ASSESSMENT: Benign, BI-RAD 2 RECOMMENDATION: Routine screening mammogram of both breasts in 1 year.
== END ==
LOC: RADMAMWWP 11:57
PROVIDERS: ATTEND Internal Medicine
DX: R92.8 Other abnormal and inconclusive findings on diagnostic imaging of breast (principal)
CPT/HCPCS: 77066; G0279; 77062

== ENCOUNTER → 2022-01-31 | Outpatient (CLI) | payer MEDICARE ==
--- NOTE | 2022-01-31 15:15 | XR ---
Right shoulder HISTORY: Pain 4 views of the right shoulder. Exam correlated prior exam 12/22/2017. Patient is status post right shoulder arthroplasty. There is anatomic alignment. Distal acromion is s lightly downturned, there is likely spur. Acromion clavicular joint shows arthropathy change. Right l roberto as visualized is within normal limits. There are overlying artifacts. Pacemaker leads are present . impression: Postop changes. Correlate for impingement.
--- NOTE | 2022-01-31 15:22 | XR ---
Cervical spine HISTORY: Pain 6 views of the cervical spine, correlation prior exam 06/23/2019 There is facet arthropathy changes. Cervical vertebral bodies show preserved height, alignment, and b one mineralization. There is multilevel spondylosis, loss of disc height is present C3-4, C4-5, C5-6 and C6-7. Patient is edentulous. Pacemaker leads noted incidentally. Aorta is dense. Bone mineralizat ion is stable. IMPRESSION: Degenerative disc disease and facet arthropathy.
== END | disposition home or self-care (01) ==
LOC: RADXRMAIN 12:27
PROVIDERS: ATTEND Internal Medicine
DX: M47.892 Other spondylosis, cervical region (principal); M25.511 Pain in right shoulder
CPT/HCPCS: 72050

== ENCOUNTER → 2022-05-08 | Outpatient (CLI) | payer MEDICARE ==
--- NOTE | 2022-05-08 16:26 | CT ---
EXAMINATION TYPE: CT cervical spine wo con CT DLP: 356 mGycm, Automated exposure control for dose reduction was used. DATE OF EXAM: 05/08/2022 4:17 PM COMPARISON: 07/04/2019. CLINICAL INDICATION:Female, 82 years old with history of M54.2 M47.812; PHH, severe neck pain that ra diates to the shoulders and down arms. TECHNIQUE: Axial CT images from the skull base to the inferior aspect of T2 we obtained without intra venous contrast. Coronal and sagittal reformatted images were also reviewed. FINDINGS: Fracture: None. Osseous structures: Multilevel degenerative disc disease changes with endplate spurring and disc oste ophyte complex's. congenital nonfusion posterior arch of C1. Vertebral alignment: Alignment within normal limits. Spinal canal/Neural Foramina: Disc osteophyte complexes at C4-C5, C5-C6 and C6-C7 with at least mild spinal canal stenosis. Facet joint uncovertebral joint arthropathy scattered throughout the cervical spine with varying degrees of neural foraminal stenosis. Neck soft tissues: Prevertebral soft tissues are within normal limits. Other: The airway is patent. The lung apices are clear. IMPRESSION: 1. No evidence of cervical spine fracture. 2. Moderate multilevel degenerative disc disease. No evidence of significant neural foraminal stenosi s
== END | disposition home or self-care (01) ==
LOC: RADCTMAIN 14:29
PROVIDERS: ATTEND Physical Medicine & Rehabilitation
DX: M47.812 Spondylosis without myelopathy or radiculopathy, cervical region (principal); Z95.0 Presence of cardiac pacemaker; M50.30 Other cervical disc degeneration, unspecified cervical region
CPT/HCPCS: 36415; 72125; 82565; 84520

== ENCOUNTER → 2024-09-05 | Outpatient (CLI) | payer MEDICARE ==
--- NOTE | 2024-09-05 13:14 | CT ---
INDICATION: Patient age:Female; 84 years old; Reason for study: J84.9 INTERSTITIAL PULMONARY DISEASE, UNSPECIFIED; [facility]. COMPARISON: Chest radiograph 10/08/2020, CT chest 09/10/2017 TECHNIQUE: Multiple thin axial images were obtained through the chest at selected intervals. Supine inspiratory along with supine expiratory images were submitted for review. Please note that due to interval acqui sition images as defined by high-resolution CT protocol the entire lung parenchyma is not evaluated, therefore small nodular densities may not be visualized. Evaluation of vascular structures, viscera and lymphatics is limited due to lack of intravenous contrast administration. One or more CT dose red uction strategies were utilized during this examination. Total DLP 803.40 mGycm. FINDINGS: LUNGS: There is no evidence of interstitial thickening, significant groundglass opacity, honeycombing or architectural distortion in the lungs. No bronchiectasis. There is segmental and subsegmental exp iratory air trapping present. No acute area of infiltrative or consolidative change. Minimal medial r ight lower lobe subsegmental linear atelectasis. LARGE AIRWAYS: Central airways are patent. No dynamic airway collapse on expiratory imaging. PLEURA: No pleural effusion or thickening. HEART AND PERICARDIUM: Heart is normal in size. There is no pericardial effusion. Dense mitral annulu s calcifications. 2-lead left anterior chest wall cardiac pacemaking device with leads terminating in the right atrium and right ventricle. Small pericardial calcifications. MEDIASTINUM AND SARAH: No mediastinal or hilar lymphadenopathy or soft tissue mass. VESSELS: The thoracic aorta is normal in course and caliber. Atherosclerotic calcifications aorta and its branches CHEST WALL AND DIAPHRAGM: Normal. LOWER NECK: Normal. UPPER ABDOMEN: Gallbladder surgically absent. MUSCULOSKELETAL: No acute fracture. Postsurgical changes from right shoulder arthroplasty. Postsurgi dwaine changes from lumbar fusion. IMPRESSION: No CT evidence for interstitial lung disease. [facility], , 09/05/2024 1:12 PM
== END | disposition home or self-care (01) ==
LOC: RADCTMAIN 12:41
PROVIDERS: ATTEND Internal Medicine Critical Care Medicine
DX: J84.9 Interstitial pulmonary disease, unspecified (principal); J98.4 Other disorders of lung; Z90.49 Acquired absence of other specified parts of digestive tract
CPT/HCPCS: 71250